=== PATIENT | female | born 1950 | race Caucasian/White ===

== ENCOUNTER 2019-02-06 06:08 | Inpatient (IN) | payer OTHER, BC ==
[2019-02-06] MEDS ORDERED: BUPIVACAINE LIPOSOME/PF (EXPAREL) 266 MG/20 ML VIAL ONE (07:26)
[2019-02-06] MEDS ORDERED: BUPIVACAINE HCL/PF 0.5% (5 MG/ML) 30 ML VIAL IJ ONE (07:26)
[2019-02-06] MEDS ORDERED: VANCOMYCIN 1,000 MG VIAL (RESTRICTED TO ID ONLY) IVPB ONE (08:30)
[2019-02-06] MEDS ORDERED: ceFAZolin SODIUM 1 GM VIAL IVPB ONE (08:30)
[2019-02-06] MEDS ORDERED: NALOXONE HCL 0.4 MG/ML VIAL IVPUSH PRN (09:34)
[2019-02-06] MEDS ORDERED: ONDANSETRON 4 MG/2 ML VIAL IVPUSH PRN ×3 (09:34→13:28)
[2019-02-06] MEDS ORDERED: LACTATED RINGERS SOLUTION 1,000 ML IV SCH ×2 (09:45→13:30)
[2019-02-06] MEDS ORDERED: ACETAMINOPHEN INJECTION 100 ML IVPB ONE ×2 (09:53→13:32)
[2019-02-06] MEDS ORDERED: GELATIN, ABSORBABLE 12-7MM EACH SPONGE TP ONE (10:05)
[2019-02-06] MEDS ORDERED: THROMBIN (BOVINE) 5,000 UNIT VIAL TP ONE (10:05)
--- NOTE | 2019-02-06 11:55 | PN ---
Progress Note (short form) - Note Progress Note: 68F s/p TIMUR L4-L5, L2-L5 laminectomies, L2-3 & L3-L4 PLIF, L2-L5 PISF POD #0: -Admit to ICU post-op. -Pain control: per anesthesia team ONLY (pre-op TLIP block & intra-thecal duromorph); NO NSAID's. -DVT PPx: -Mechanical only: CHRISTOPHER's, SCD's. -Chemical: None. -Incentive spirometry q15 min. -NPO until flatus. -Eduardo care; d/c when ambulating. -Post-op Ancef x 3 doses. -PT/OT/Rehab, OOB. -WBAT B/L LE. -No bending, lifting (>5 lbs), or twisting for 9-12 months. -Care per ICU & medical hospitalist team. -Discharge planning: [facility]; call for [facility]; . -Will follow. Frank Cabello MD (Orthopaedic Surgery).
--- NOTE | 2019-02-06 12:00 | OP ---
Operative Note - Note: Operative Date: 02/06/19 Pre-Operative Diagnosis: 1. Multi-level lumbar spinal instability. 2. Pseudarthrosis L4-L5. 3. Intervertebral disc disorders L2-L3, L3-L4 w/ associated spinal stenosis & neurogenic claudication. Severity of Illness: 4. Operation: 1. Removal of L4-L5 hardware. 2. Inspection of fusion mass. 3. L2- L5 laminectomies & facetectomies. 4. L2-L3, L3-L4 PLIF. 5. L2-L3, L3-L4 insertion biomechanical devices. 6. L2-L5 posterior instrumentation. 7. L2-L5 posterolateral arthrodesis. 8. Bone allograft. 9. Bone autograft. 10. Bone marrow aspiration & stem cell concentrate autograft. 11. Complex wound closure (20cm) Findings: -Pseudarthrosis L4-L5 -Spondylolysis L3 (bilateral) Implants: RTI Fortilink Tetrafuse Cages: L2-L3: [id number]. L3-L4: [id number]. Screws: See implant sheet Post-Operative Diagnosis: Same as Pre-op Surgeon: Frank Cabello Manual Control Auger Press Operator: Domingo Cabello Anesthesiologist/AUTOMATION SOFTWARE ENGINEER: Nelson Engel Anesthesia: General Specimens Removed: Hardware. L2-L3, L3-L4 disc Estimated Blood Loss (mls): 1,300 Drains & Tubes with Location: 1 x deep HemoVac drain Blood Volume Replaced (mls): 500 (Cell Saver) Fluid Volume Replaced (mls): 3,000 (Crystalloid) Operative Report Dictated: Yes
[2019-02-06] MEDS ORDERED: ACETAMINOPHEN 1000 MG/100 ML VIAL (NON FORMULARY) IVPB ONE ×2 (14:00→15:49)
--- NOTE | 2019-02-06 14:49 | OP ---
Date of Operation: 02/06/2019 Pre-Operative Diagnosis: 1. L2-L3, L3-L4, L4-L5 lumbar spondylotic radiculopathy. 2. L2-L5 spinal stenosis with neurogenic claudication. 3. Prior L4-L5 posterior decompression and instrumented lumbar fusion. 4. L4-L5 pseudarthrosis. 5. Bilateral L3 spondylolysis. 6. L3-L4 spondylolisthesis. 7. Adjacent level disease lumbar spine. 8. Chronic low back pain. 9. Segmental axial instability lumbar spine. Post-Operative Diagnosis: 1. L2-L3, L3-L4, L4-L5 lumbar spondylotic radiculopathy. 2. L2-L5 spinal stenosis with neurogenic claudication. 3. Prior L4-L5 posterior decompression and instrumented lumbar fusion. 4. L4-L5 pseudarthrosis. 5. Bilateral L3 spondylolysis. 6. L3-L4 spondylolisthesis. 7. Adjacent level disease lumbar spine. 8. Chronic low back pain. 9. Segmental axial instability lumbar spine. Procedure Performed: 1. Removal of prior L4-L5 instrumentation. (34239) 2. Inspection of fusion mass. (57284) 3. L2, L3, L4, L5 laminectomies and facetectomies. (52259-79, 08628-92 x 3) 4. L2-L3, L3-L4 posterolateral arthrodesis & posterior lumbar interbody fusion (PLIF). (57717, 10898) 5. L2-L3, L3-L4 insertion biomechanical device. (94230 x 2) 6. L2, L3, L4, L5 posterior instrumentation. (05022-24-97) 7. Morselized bone autograft. (25529) 8. Morselized bone allograft. (73817) 9. Bone marrow aspiration for bone grafting. (63808) 10. Complex wound closure, 4 layers, 30cm. (93034 x 4) Surgeon: Frank Cabello M.D. Transportation Design Engineer: Domingo Cabello M.D. Anesthesiologist: Nelson Engel M.D. Anesthesia: General, TLIP. Position: Prone. Incision: Midline. Specimens Removed: L4-L5 hardware, L2-L3 & L3-L4 discs. Implants: RTI Fortilink Tetrafuse Cages: L2-L3: [id number]. L3-L4: [id number]. Screws: See implant sheet. Crosslink: 40mm. Drains: None. Estimated Blood Loss: 1,300cc. Intravenous Fluid: 3,000cc crystalloid. Transfusions: 500cc Cell Saver. Complications: None. Bacteriology: None. Closure: No. 1 Vicryl, 2-0 Biosyn absorbable sutures. Indications: The patient was indicated for the above listed surgical procedure due to progressive neurological and functional decline that limits her mobility and furthermore her ability to independently attend to her activities of daily living. The patient was identified in the holding area by her armband. A long discussion was held with the patient regarding the risks, benefits, and alternatives of the above-listed procedure. The risks include, but are not limited to: Pain, bleeding, infection, damage to surrounding structures (including nerves, blood vessels, skin, ligaments, tendons, and bone), wound complications, failure of hardware/implants/reduction , need for further surgery, blood clots, myocardial infarction, cerebrovascular injury, pulmonary embolism, anesthesia complications, limp, numbness, paresthesias, loss of function, and . Benefits may include reduction of: back pain, radiculopathy, neurogenic claudication, and improved overall mobility and function. Alternatives include no surgery. All questions were answered. The patient understood and agreed to the procedure. Informed consent was obtained, witnessed, and verified. The patient's lumbar spine was marked. The patient was then assessed by the anesthesia team who proceeded to administer a bilateral imaging-guided TLIP blocks to facilitate post-operative pain management. The patient was then taken to the operating room after being seen by the anesthesia and nursing staff. Procedure: The patient was brought into the operating room, where anesthesia was then administered. This included 2g IV Ancef & 1g IV Vancomycin. A time-out was done led by , the attending surgeon. An indwelling Eduardo catheter was successfully inserted by the nursing team. The intra-operative neuromonitoring team provided prepositioning baseline motor and sensory readings. The patient was then safely placed in a prone position with all bony prominences well-padded on a [facility] spine table with strict attention paid to maintenance of sagittal vertical alignment. Retroversion of the pelvis was avoided by ensuring that the hips were extended. This also ensured appropriate lumbar lordosis. The arms were placed on well-padded arm boards and maintained with standard forward flexion, abduction, and external rotation of the shoulders , and flexion of the elbows. Special attention was given to the safe positioning of the cervical spine. The patients eyes, breasts, and belly were all free. The table was placed in 6 degrees of reverse Trendelenburg position to avoid ophthalmic vein congestion. Post-positional motor and sensory readings confirmed no change. A C-arm fluoroscopy unit was positioned perpendicularly to the table and maintained at the level of the upper thoracic spine, except when needed. The skin was prepped in standard, sterile fashion using betadine prep & scrub, wiped off with alcohol, and DuraPrep applied. Standard window draping was utilized, and this included draping of the C-arm. Appropriate pre-operative imaging, including lumbar spine x-rays and MRI, were available throughout the case for intraoperative evaluation. At this time, a review of the patients plain film lumbar spine x-rays led to the determination the previous surgery was performed at the L4-L5 levels. This was determined due to the presence of 4 lumbar vertebrae and sacralization of the 5th lumbar vertebra. A time-out was repeated, and the case began. The previous, curved midline skin incision was utilized and extended proximally from the tip of the spinous process of L1 to the tip of the spinous process of S1. Using electrocautery, the dissection was carried down through subcutaneous fat and then through the midline of the lumbodorsal fascia down to the tips of the spinous processes. A subperiosteal dissection was performed using a combination of unipolar electrocautery and Kang elevation. This was carried down the spinous process, over the laminae, across the facet joints, and out over the tips of the transverse processes from L2 to L5. In this dissection, the capsules of the L1-L2 joints were preserved bilaterally. The previously placed L4-L5 hardware was exposed bilaterally. The L2-L3, L3-L4, and L4-L5 joint capsules were pathologically hypertrophic. They were ablated using electrocautery and resected with rongeurs. The posterolateral dissection was performed with attention to hemostasis by utilizing both unipolar as well as bipolar electrocautery. Extensive scar tissue and fibrosis was encountered throughout the dissection, as evidence of previous lumbar spinal surgery. The posterolateral space was packed with Ray-Mariela sponges. A screw van cdl driver was fixed into screws at L4 and L5. Instability, and therefore pseudarthrosis, was demonstrated at L4-L5 and ankylosis of L5-S1 with no evidence of micromotion was seen at L5-S1. This confirmed that the location of the last mobile segment was L4-L5. This also completed the inspection of the L4-L5 fusion mass. The L4-L5 hardware was then removed. A rongeur was used to grasp the L3 spinous process and demonstrate a bilateral pars defect at that level. This identified the L3 sponylolysis and accounted for the L3-L4 spondylolisthesis. Bilateral laminectomies and partial medial facetectomies were performed at L2, L3, L4, and L5 utilizing Kerrison rongeur upcuts combined with Leksell rongeurs. All harvested bone was saved, freed of fibrous tissue, and morselized with a bone mill. At L2-L3, L3-L4, and L4-L5, tight recess stenosis was appreciated. The exiting L2, L3, L4, & L5 nerve roots were identified. Extensive epineural fibrosis diffusely from L2-L5. Stenosing, fibrotic scar tissue was meticulously dissected off the neural elements. Each foramen from L3-S1 was inspected utilizing an angled ball-tipped probe and proved to be generously capacious in accommodating the unobstructed exit of the nerve root at that level. The crowding of the convoluted ligamentum flavum and posterior facet joint capsules contributed to the recess stenosis. These structures were excised using Kerrison upcuts, thus fully completing the decompression. All retractors were relaxed and removed. A Jamshidi needle was delivered into the left posterior ileum through the same surgical incision. Via this, 60 mL of bone marrow was aspirated and spun down to isolate a mix of osteoprogenitor and hematopoietic cells. Retractors were inserted once again. The following was performed at L2-L3 and at L3-L4: The theca was gently mobilized from left to right using a nerve root retractor. In order to do this, we ensured that each nerve root was completely free in its neural foramen as previously described. With the intervertebral disc clearly visualized, large epidural veins were cauterized using bipolar electrocautery. The disc was approached from the right side and using a #11-blade, an elliptical annulotomy was performed. Kameron were passed into the disc at each level. The disc was morselized with rotation of the kameron, and then extricated with pituitary rongeurs and saved for lab evaluation. The end plates were freed of all soft tissues using a serrated curette. Milled bone autograft was packed into the interbody space, thus completing an anterior arthrodesis of the intervertebral space. An RTI Fortilink Tetrafuse spacer, that was packed with autograft bone, was inserted into the prepared intervertebral space. The cage was placed in a Press-Fit type manner where the kameron were one size under the actual size of the spacer placed as outlined above. An interference fit of the cage assured as we relied on ligamentotaxis for fixation. No dural problems were encountered. At this point, the neuromonitoring revealed no complications. Cage inserted at L2-L3: [id number]. Cage inserted at L3-L4: [id number]. Pedicle screws were then seated bilaterally at L2, L3, L4, & L5 utilizing standard anatomical guidelines: IE the intersection of the horizontal axis of the transverse process with the longitudinal axis of the inferior facet at each level. Utilizing lateral fluoroscopic x-ray, a 4.5mm pneumatic drill was passed via the pedicle at each level, into the corresponding vertebral body. Imaging allowed us to ensure that the drill screw was delivered along the undersurface of each endplate. This ensured fixation into the best quality bone. Each pedicle was palpated with a ball-tipped feeler. No breech of anterior, medial, lateral, caudal or cranial bone bed was noted. Precision Spine Reform screws were inserted bilaterally at L2, L3, L4, & L5. Each screw was reevaluated with lateral and anteroposterior fluoroscopy as well as intraoperative neuromonitoring. All intraoperative neuromonitoring readings were at or above the safe passage of 10 mA. The L2, L3, L4, and L5 pedicles were inspected and palpated using an angled ball -tipped probe. There was no evidence of screw breach involving any of the pedicles. Next, two rods were contoured, inserted and fixed into the screw heads with the appropriate screw caps. A torque-limiting device completed the fixation of each cap into each screw head. A single 40mm crosslink was utilized. Next, the muscle was gently retracted off the intertransverse plane. All packing sponges were removed. Milled autologous bone with allograft expansion was combined with the bone marrow aspirate concentrate and used for the posterolateral arthrodesis along the intertransverse plane from L2 to L5. Prior to this bone grafting, the recipient bone bed was denuded of all soft tissue. No burring was necessary due to healthy bleeding of each bony surface, including the posterior surface of the transverse processes and the lateral surface of the pars interarticularis at each level. Throughout the case, the wound was irrigated with normal saline solution to keep the exposed soft tissues hydrated. The retractors were released every 15 to 20 minutes to enable adequate blood flow to the paraspinal muscles. These muscles were gently massaged upon release of the retractors to further facilitate blood flow. At the end of the procedure, fragmented and compromised paraspinal muscle was superficially debrided. The anesthesiologist then performed a final Valsalva maneuver up to 40mmHg. There was no evidence of dural defect, cerebrospinal fluid leak, or uncontrollable bleeding. Closure: The lumbodorsal fascia overlying the paraspinal musculature was closed in the midline using #1 vicryl sutures in simple interrupted fashion. A 1/8 HemoVac drain was placed in the plane deep to the fascia, exiting adjacent to the proximal apex of the incision. The wound was repeatedly thoroughly irrigated with normal saline solution. The subcutaneous tissues were closed using #1 Vicryl sutures. The skin was closed using a running 2-0 Biosyn absorbable suture. This completed a complex, 4-layered wound closure of approximately 30cm. The skin was then painted with benzoin and Steri-Strips were applied perpendicular to the incision. A Primapore adhesive Telfa island dressing was applied over the Steri-Strips and a sterile, compressive dressing was applied using 4x4 gauze pads. The skin was painted with DuraPrep. The wound was then sealed with adhesive Ioban. Final AP & lateral fluoroscopic analysis revealed L2-L3 and L3-L4 PLIF cages and L2-L5 instrumentation that appeared intact & place. The L2-L3 and L3-L4 disc heights were reconstituted with visibly patent neuroforaminae. There was no fluoroscopic evidence of retained sponges or needles. The sponge and needle counts were correct at the end of the case and I, the attending surgeon, was present and scrubbed throughout the case. The patient was transferred to a hospital bed. All neural monitoring leads were removed. The patient was then transferred to the recovery room in stable condition, as per the anesthesia team, having tolerated the procedure well. Overall comment: Operation went extremely well with no concerning complications. All appropriate goals were achieved in the execution of this operative event. MD BRUNO Avila/[id number] MTDD
[2019-02-06] MEDS: PHENYLEPHRINE HCL 20,000 MCG in SODIUM CHLORIDE 248 ML IVPB SCH ×2 (15:05→20:00)
--- NOTE | 2019-02-06 15:06 | CONSULT ---
Consultation: REQUESTING PROVIDER: Dr. Leon CONSULT REQUEST: We have been asked to medically evaluate this patient s/p TIMUR L4-L5, L2-L5 laminectomies, L2-3 & L3-L4 PLIF, L2-L5 PISF Pre-op diagnosis: -Pseudarthrosis L4-L5 -Spondylolysis L3 (bilateral) Anesthetic: (pre-op TLIP block & intra-thecal duromorph) Implants: RTI Fortilink Tetrafuse Cages: L2-L3: [id number]. L3-L4: [id number]. POD #0 Specimens Removed: Hardware. L2-L3, L3-L4 disc Estimated Blood Loss (mls): 1,300 Drains & Tubes with Location: 1 x deep HemoVac drain Blood Volume Replaced (mls): 500 (Cell Saver) Fluid Volume Replaced (mls): 3,000 (Crystalloid) Eduardo- 300cc output Non-smoker HISTORY OF PRESENT ILLNESS: This is a 68 y/o F with a PMH of HLD, HTN, depression, who presents for TIMUR L4-L5, L2-L5 laminectomies, L2-3 & L3-L4 PLIF, L2-L5 PISF. The history was taken from pt's , pt is too lethargic s/p anesthesia. She has been experiencing sharp pain radiating down b/l LE's for over a year that acutely worsened over the past week. It is associated with cold temperatures and improved with warmer temperatures. It is not associated with any bowel or bladder incontinence. Allergies: Demerol (vomiting) Surgical Hx: 2 back procedures (unknown which type per family), hysterectomy, serous cystadenocarcinoma removal, rt elbow tendinitis repair Fam Hx- nothing T- never A- none D- none REVIEW OF SYSTEMS: negative except above. pt not awake enough PHYSICAL EXAMINATION Vital Signs - 24 hr 02/06/19 02/06/19 06:58 07:17 Temperature 98.0 F Pulse Rate 70 Respiratory 16 Rate Blood Pressure 141/68 O2 Sat by Pulse 99 Oximetry (%) GENERAL: lethargic, nonresponsive to noxious stimuli. EYES: Pupils equal, round and reactive to light LUNGS: Breath sounds equal, clear to auscultation bilaterally. No wheezes, and no crackles. No accessory muscle use. HEART: tachycardic and regular rhythm, normal S1 and S2 without murmur, rub or gallop. ABDOMEN: Soft, nontender, not distended, davol drain in place draining serosanguinous fluid from back. MUSCULOSKELETAL: Normal range of motion at all joints. No bony deformities or tenderness. No CVA tenderness. Neurologic: lethargic, pupils reactive to light, pt nonresponsive to commands or noxious stimuli. SKIN: Warm, dry, no rashes or lesions noted. Laboratory Results - last 24 hr 02/06/19 02/06/19 06:29 08:32 Blood Type O POSITIVE O POSITIVE Antibody Screen Negative Active Medications Generic Name Dose Route Start Last Admin Trade Name Freq PRN Reason Stop Dose Admin Acetaminophen 650 mg 02/06/19 20:00 Tylenol - PO Q6H MOISÉS Acetaminophen 1,000 mg 02/06/19 22:00 Ofirmev Injection - IVPB 02/07/19 14:01 Q8H MOISÉS Amlodipine Besylate 2.5 mg 02/07/19 10:00 Norvasc - PO DAILY [facility] Atorvastatin Calcium 20 mg 02/06/19 22:00 Lipitor - PO HS [facility] Diphenhydramine HCl 25 mg 02/06/19 09:34 Benadryl Injection - IVPUSH ONCE PRN FOR ITCHING Fentanyl 25 mcg 02/06/19 09:34 Sublimaze Injection - IVPUSH [id number] PRN PAIN-PACU ORDER X 4 DOSES ONLY Lactated Ringer's 1,000 mls @ 75 mls/hr 02/06/19 09:45 Lactated Ringers Solution IV ASDIR [facility] Lactated Ringer's 1,000 mls @ 125 mls/hr 02/06/19 13:30 Lactated Ringers Solution IV ASDIR [facility] Lamotrigine 25 mg 02/06/19 22:00 Lamictal - PO HS [facility] Naloxone HCl 0.4 mg 02/06/19 09:34 Narcan - IVPUSH ONCE PRN Sedation Ondansetron HCl 4 mg 02/06/19 09:34 Zofran Injection IVPUSH ONCE PRN NAUSEA Ondansetron HCl 4 mg 02/06/19 09:34 Zofran Injection IVPUSH Q6H PRN NAUSEA AND/OR VOMITING Ondansetron HCl 4 mg 02/06/19 13:28 Zofran Injection IVPUSH Q6H PRN NAUSEA AND/OR VOMITING Oxycodone HCl 5 mg 02/06/19 09:34 Roxicodone - PO Q3H PRN Mild Pain 1-3 Oxycodone HCl 10 mg 02/06/19 09:34 Roxicodone - PO Q3H PRN Moderate Pain 4-6 Oxycodone HCl 10 mg 02/07/19 09:35 Oxycontin - PO BID MOISÉS Paroxetine HCl 30 mg 02/07/19 10:00 Paxil - PO DAILY MOISÉS Trazodone HCl 150 mg 02/06/19 22:00 Desyrel - PO HS [facility] ASSESSMENT/PLAN: This is a 68 y/o s/p TIMUR L4-L5, L2-L5 laminectomies, L2-3 & L3-L4 PLIF, L2-L5 PISF Ortho -> Pain control: per anesthesia team ONLY (pre-op TLIP block & intra-thecal duromorph); NO NSAID's. - oxycodone prn - IV LR @125ccc/hr - phenylephrine titrated down to 50mcg for MAP support >65 -Incentive spirometry q15 min. - zofran prn for nausea -NPO until flatus. -Eduardo care; d/c when ambulating. - monitor Urine output -Post-op Ancef 1g x 3 doses. -PT/OT/Rehab, OOB. -weight bearing as tolerated B/L LE's. Neuro-> depression/lethargy - pt found to be lethargic on exam s/p sedation - had anesthesia reevaluate the patient and were not concerned most likely 2/2 anesthesia - continue lamictal, trazodone, paroxetine Cardiovascular-> HTN/HLD - c/w amlodipine - c/w atorvastatin -DVT PPx:Mechanical only: CHRISTOPHER's, SCD's. Chemical: None. GI PPX: not necessary s/p extubation Dispo: We will continue to follow the patient. Thank you for this consultative opportunity.
[2019-02-06] MEDS ORDERED: NALOXONE HCL 0.4 MG/ML VIAL ONE (15:14)
[2019-02-06] MEDS ORDERED: EPHEDRINE SULFATE/0.9% NACL/PF 50 MG/10 ML SYRINGE NR ONE (15:14)
[2019-02-06] MEDS ORDERED: SODIUM CHLORIDE 0.9% P/F 10 ML VIAL IJ ONE (15:14)
[2019-02-06 15:32] LABS: BASO % 0.3 % (0-2.0); EOS % 0.5 % (0-4.5); HEMATOCRIT 28.8 % (32.4-45.2); HEMOGLOBIN 9.5 GM/dL (10.7-15.3); LYMPH % 14.1 % (8-40); MCH 28.3 pg (25.7-33.7); MEAN CELL VOLUME 85.9 fl (80-96); MONO % 4.8 % (3.8-10.2); NEUT % 80.3 % (42.8-82.8); PLATELET COUNT 192 K/MM3 (134-434); RBC 3.35 M/mm3 (3.60-5.2); RDW 13.8 % (11.6-15.6); WHITE BLOOD COUNT 10.9 K/mm3 (4.0-10.0)
[2019-02-06 15:59] LABS: ALBUMIN 2.1 g/dl (3.4-5.0); BILIRUBIN,TOTAL 0.4 mg/dL (0.2-1); CALCIUM 7.4 mg/dL (8.5-10.1); CREATININE 0.9 mg/dL (0.55-1.3); MAGNESIUM 1.6 mg/dL (1.8-2.4); PHOSPHOROUS 4.7 mg/dL (2.5-4.9); POTASSIUM 4.1 mmol/L (3.5-5.1); TOT PROT 3.5 g/dl (6.4-8.2)
[2019-02-06] MEDS ORDERED: PHENYLEPHRINE HCL 10 MG/1 ML SINGLE DOSE VIAL ONE ×3 (16:13→20:39)
[2019-02-06] MEDS ORDERED: MAGNESIUM SULF 50% (8.12 MEQ/2 ML-1 GM VIAL) IVPB ONE (16:22)
[2019-02-06] MEDS ORDERED: ACETAMINOPHEN 325 MG TABLET (FP) PO SCH (20:00)
[2019-02-06] MEDS: LACTATED RINGERS SOLUTION 1,000 ML IV SCH (20:04)
[2019-02-06] MEDS: lamoTRIgine 25 MG TABLET PO SCH (21:25)
[2019-02-06] MEDS: traZODone HCL 50 MG TABLET (FP) PO SCH (21:25)
[2019-02-06] MEDS: ACETAMINOPHEN 1000 MG/100 ML VIAL (NON FORMULARY) IVPB SCH (21:27)
[2019-02-06 21:59] LABS: ARTERIAL BLD GAS O2 SATURATION 98.7 % (95-98)
[2019-02-06] MEDS ORDERED: ATORVASTATIN CA 20 MG TABLET (FP) PO SCH (22:00)
[2019-02-06 22:06] LABS: ARTERIAL BLOOD GAS PO2 223 mmHg (80-100)
[2019-02-06 22:07] LABS: ALLENS TEST NEGATIVE
[2019-02-06 22:12] LABS: ARTERIAL BLOOD GAS PCO2 > 100 mmHg (35-45); ARTERIAL BLOOD GAS pH 7.03 (7.35-7.45)
[2019-02-06] MEDS ORDERED: RAPID SEQUENCE INTUBATION KIT NR ONE (22:26)
[2019-02-06] MEDS ORDERED: PROPOFOL 200 MG/20 ML VIAL IVPUSH ONE (22:53)
[2019-02-06] MEDS ORDERED: SUCCINYLCHOLINE CHLORIDE 200 MG/10 ML VIAL IVPUSH ONE (22:53)
--- NOTE | 2019-02-06 23:05 | PROC ---
Intubation - Intubation Reason for Intubation: Respiratory Insufficiency, Airway Protection Time of Intubation: 22:30 Intubation Method: orotracheal Blade used: Mac (3) Tube Size (cm): 7.5 Tube position @ lip (cm): 22 Tube position confirmed by: Direct visualization, CO2 detector, Chest x-ray, Breath sounds Breath Sounds after Intubation: equal Post Intubation Xray: Yes (pending) Remarks: Anesthesiology Intubation Called re. pt. with worsening hypercarbia and lethargic state with little to no response to sternal rub or other painful stimuli. She also remains on vasopressor support and is receiving blood transfusion post-op spine surgery. Pt. positioned in bed, Propofol 100mg followed by Succinylcholine 100mg IV push by RN. BMV assumed by resident and myself with ease. Grade 2 laryngoscopic view , ETT passed with ease, cuff inflated. Bilateral breath sounds confirmed and color change with carboximeter. VSS. BP 119/72, HR 66, SpO2 100%
[2019-02-06] MEDS ORDERED: DEXMEDETOMIDINE HCL 200 MCG in SODIUM CHLORIDE 48 ML IVPB SCH (23:45)
[2019-02-07 00:35] LABS: ARTERIAL BLD GAS O2 SATURATION 95.5 % (95-98); ARTERIAL BLOOD GAS BASE EXCESS -8.3 meq/l (-2-2); ARTERIAL BLOOD GAS PCO2 62.3 mmHg (35-45); ARTERIAL BLOOD GAS PO2 88.8 mmHg (80-100)
[2019-02-07 01:26] LABS: ALLENS TEST POSITIVE
[2019-02-07 01:29] LABS: ARTERIAL BLOOD GAS pH 7.15 (7.35-7.45)
[2019-02-07] MEDS: PROPOFOL 1,000,000 MCG/100 ML VIAL IVPB SCH (04:00)
[2019-02-07 04:57] LABS: ARTERIAL BLD GAS O2 SATURATION 99.4 % (95-98); ARTERIAL BLOOD GAS BASE EXCESS -0.6 meq/l (-2-2); ARTERIAL BLOOD GAS PCO2 31.7 mmHg (35-45); ARTERIAL BLOOD GAS PO2 147 mmHg (80-100); ARTERIAL BLOOD GAS pH 7.46 (7.35-7.45)
[2019-02-07 05:06] LABS: ALLENS TEST POSITIVE
[2019-02-07] MEDS: ACETAMINOPHEN 1000 MG/100 ML VIAL (NON FORMULARY) IVPB SCH ×2 (06:22→15:05)
[2019-02-07 07:24] LABS: HEMATOCRIT 28.3 % (32.4-45.2); HEMOGLOBIN 9.7 GM/dL (10.7-15.3); MCHC 34.3 g/dl (32.0-36.0); MEAN CELL VOLUME 84.5 fl (80-96); MEAN PLT VOLUME 8.3 fl (7.5-11.1); PLATELET COUNT 134 K/MM3 (134-434); RBC 3.35 M/mm3 (3.60-5.2); RDW 13.3 % (11.6-15.6); WHITE BLOOD COUNT 9.7 K/mm3 (4.0-10.0)
[2019-02-07 07:46] LABS: ALBUMIN 2.3 g/dl (3.4-5.0); BILIRUBIN,TOTAL 1.2 mg/dL (0.2-1); BLOOD UREA NITROGEN 9.5 mg/dL (7-18); CALCIUM 7.7 mg/dL (8.5-10.1); CREATININE 0.8 mg/dL (0.55-1.3); MAGNESIUM 1.9 mg/dL (1.8-2.4); PHOSPHOROUS 2.4 mg/dL (2.5-4.9); POTASSIUM 4.2 mmol/L (3.5-5.1)
--- NOTE | 2019-02-07 08:22 | HP ---
CHIEF COMPLAINT: neurosurg surgery PCP: HISTORY OF PRESENT ILLNESS: Patient is a 68 y/o female with a history of HLD, HTN, and depression who presents for neurosurgery with Dr. Cabello. Patient underwent TIMUR L4-L5, L2-L5 laminectomies, L2-3 & L3-L4 PLIF, L2-L5 PISF. Patient was extubated in the PACU and brought to the ICU. Patient began to have trouble breathing and with acidotic ABG she was reintubated. Patients tube was 2 cm to low, the tube was pulled back a bit. Patient currently intubated and sedated. ER course was notable for: (1) (2) (3) Recent Travel: PAST MEDICAL HISTORY: HLD, HTN, and depression PAST SURGICAL HISTORY: past lumbar surgery Social History: Smoking: unable to obtain Alcohol: unable to obtain Drugs: unable to obtain Allergies meperidine [From Demerol] Allergy (Verified 02/03/19 12:38) "vomitting,hives" HOME MEDICATIONS: Home Medications Medication Instructions Recorded Amlodipine Besylate 2.5 mg PO DAILY 02/03/19 Atorvastatin Ca [Lipitor] 20 mg PO HS 02/03/19 Lamotrigine 25 mg PO HS 02/03/19 Paroxetine HCl [Paxil] 30 mg PO DAILY 02/03/19 Trazodone HCl 150 mg PO HS 02/03/19 REVIEW OF SYSTEMS unable to review PHYSICAL EXAMINATION Vital Signs Temperature 100.6 F H 02/07/19 06:00 Pulse Rate 73 02/07/19 06:30 Respiratory Rate 18 02/07/19 06:30 Blood Pressure 120/60 02/07/19 06:30 O2 Sat by Pulse Oximetry (%) 100 02/07/19 07:00 GENERAL: sedated, intubated HEAD: atraumatic LUNGS: Breath sounds equal, clear to auscultation bilaterally. No wheezes, and no crackles. No accessory muscle use. HEART: Regular rate and rhythm, normal S1 and S2 without murmur, rub or gallop. ABDOMEN: Soft, nontender, not distended, normoactive bowel sounds, no guarding, no rebound, no masses. MUSCULOSKELETAL: drain coming from back, did not turn patient post op LOWER EXTREMITIES: 2+ pulses, warm, well-perfused. No calf tenderness. No peripheral edema. SKIN: Warm, dry, normal turgor, no rashes or lesions noted, normal capillary refill. CBC, BMP 02/07/19 06:28 02/07/19 06:00 ASSESSMENT/PLAN: Patient is a 68 y/o female with a history of HLD, HTN, and depression who presents for neurosurgery. #Lumbar surgery - TIMUR L4-L5, L2-L5 laminectomies, L2-3 & L3-L4 PLIF, L2-L5 PISF - SCD's for prophylaxis - pain management as per Anesthesia - incentive spirometry q15 min - NPO until flatus - received post op Ancef - f/u PT - continue to monitor hgb> stable 9.7 post op #hypercapnic respiratory failure - likely 2/2 to anesthesia with soft tissue relaxation - patient still intubated, wean as per ICU - ABG's showed improvement - endotracheal tube placement improved with new CXR #hyperlipidemia - hold lipitor in setting of elevated liver tranaminases #elevated transaminase - AST, ALT trending down post op - continue to monitor #depression - continue lamictal - continue paxil #HTN -hold medications while patient sedated and normotensive #DVT ppx - only mechanical as per surgeon, SCD's FEN - NPO while intubated Dispo: management while in the ICU, patient to f/u with Manohar on discharge Visit type - Emergency Visit Emergency Visit: No - New Patient This patient is new to me today: Yes Date on this admission: 02/10/19 - Critical Care Critical Care patient: No ATTENDING PHYSICIAN STATEMENT I saw and evaluated the patient. I reviewed the resident's note and discussed the case with the resident. I agree with the resident's findings and plan as documented. SUBJECTIVE: OBJECTIVE: ASSESSMENT AND PLAN:
[2019-02-07] MEDS ORDERED: amLODIPine BESYLATE 2.5 MG TABLET (FP) PO SCH (10:00)
--- NOTE | 2019-02-07 10:26 | PN ---
Physical Exam: SUBJECTIVE: Patient seen and examined this morning and was intubated and sedated. pt sedation was weaned off later in am, pt responds to commands and was later extubated. pt is saturating well on venti mask and is neurologically intact. OBJECTIVE: Vital Signs Period Temp Pulse Resp BP Sys/Husain Pulse Ox Last 24 Hr 97.3 F-100.6 F 65-131 8-24 70-153/30-116 97-100 GENERAL: The patient is awake, alert, in no acute distress. EYES: PERRL, extraocular movements intact ENT: oropharynx clear without exudates, moist mucous membranes. LUNGS: Breath sounds equal, clear to auscultation bilaterally, no wheezes, no crackles, no accessory muscle use. HEART: Regular rate and rhythm, S1, S2 without murmur, rub or gallop. ABDOMEN: Soft, nontender, nondistended, normoactive bowel sounds, no guarding EXTREMITIES: 2+ pulses, warm, well-perfused, no edema. NEUROLOGICAL: Cranial nerves II through XII grossly intact. Normal speech, gait not observed. SKIN: Warm, dry, normal turgor, no rashes or lesions noted Laboratory Last Values WBC 9.7 K/mm3 (4.0-10.0) 02/07/19 06:28 RBC 3.35 M/mm3 (3.60-5.2) L 02/07/19 06:28 Hgb 9.7 GM/dL (10.7-15.3) L 02/07/19 06:28 Hct 28.3 % (32.4-45.2) L 02/07/19 06:28 MCV 84.5 fl (80-96) 02/07/19 06:28 MCH 29.0 pg (25.7-33.7) 02/07/19 06:28 MCHC 34.3 g/dl (32.0-36.0) 02/07/19 06:28 RDW 13.3 % (11.6-15.6) 02/07/19 06:28 Plt Count 134 K/MM3 (134-434) D 02/07/19 06:28 MPV 8.3 fl (7.5-11.1) 02/07/19 06:28 Absolute Neuts (auto) 8.7 K/mm3 (1.5-8.0) H 02/06/19 15:08 Neutrophils % 80.3 % (42.8-82.8) 02/06/19 15:08 Lymphocytes % 14.1 % (8-40) 02/06/19 15:08 Monocytes % 4.8 % (3.8-10.2) 02/06/19 15:08 Eosinophils % 0.5 % (0-4.5) 02/06/19 15:08 Basophils % 0.3 % (0-2.0) 02/06/19 15:08 Nucleated RBC % 0 % (0-0) 02/06/19 15:08 Puncture Site Right radial 02/07/19 04:50 ABG pH 7.46 (7.35-7.45) H 02/07/19 04:50 ABG pCO2 at Pt Temp 31.7 mmHg (35-45) L 02/07/19 04:50 ABG pO2 at Pt Temp 147 mmHg (80-100) H 02/07/19 04:50 ABG HCO3 22.3 mmol/L (22-27) 02/07/19 04:50 ABG O2 Sat (Measured) 99.4 % (95-98) H 02/07/19 04:50 ABG O2 Content 13.8 % vol 02/07/19 04:50 ABG Base Excess -0.6 meq/l (-2-2) 02/07/19 04:50 Garth Test Positive 02/07/19 04:50 O2 Delivery Device Vent 02/07/19 04:50 Oxygen Flow Rate 50 02/07/19 04:50 Vent Mode A/c 02/07/19 04:50 Vent Rate 18 02/07/19 04:50 Mechanical Rate Mech vent 02/07/19 04:50 Pressure Support Vent 500 02/07/19 04:50 Sodium 138 mmol/L (136-145) 02/07/19 06:00 Potassium 4.2 mmol/L (3.5-5.1) 02/07/19 06:00 Chloride 108 mmol/L (98-107) H 02/07/19 06:00 Carbon Dioxide 24 mmol/L (21-32) 02/07/19 06:00 Anion Gap 7 MMOL/L (8-16) L 02/07/19 06:00 BUN 9.5 mg/dL (7-18) 02/07/19 06:00 Creatinine 0.8 mg/dL (0.55-1.3) 02/07/19 06:00 Est GFR (CKD-EPI)AfAm 87.80 02/07/19 06:00 Est GFR (CKD-EPI)NonAf 75.75 02/07/19 06:00 Random Glucose 116 mg/dL (74-106) H 02/07/19 06:00 Calcium 7.7 mg/dL (8.5-10.1) L 02/07/19 06:00 Phosphorus 2.4 mg/dL (2.5-4.9) L 02/07/19 06:00 Magnesium 1.9 mg/dL (1.8-2.4) 02/07/19 06:00 Total Bilirubin 1.2 mg/dL (0.2-1) H 02/07/19 06:00 AST 159 U/L (15-37) H 02/07/19 06:00 ALT 164 U/L (13-61) H 02/07/19 06:00 Alkaline Phosphatase 95 U/L (45-117) 02/07/19 06:00 Total Protein 4.0 g/dl (6.4-8.2) L 02/07/19 06:00 Albumin 2.3 g/dl (3.4-5.0) L 02/07/19 06:00 Blood Type O POSITIVE 02/06/19 08:32 Antibody Screen Negative 02/06/19 06:29 Crossmatch See Detail 02/06/19 06:29 Current Medications Acetaminophen (Ofirmev Injection -) 1,000 mg IVPB Q8H [facility] Stop: 02/07/19 14:01 Last Admin: 02/07/19 06:22 Dose: 1,000 mg Diphenhydramine HCl (Benadryl Injection -) 25 mg IVPUSH ONCE PRN PRN Reason: FOR ITCHING Phenylephrine HCl 20,000 mcg/ (Sodium Chloride) 250 mls @ 30 mls/hr IVPB [facility]; Protocol Last Titration: 02/07/19 02:30 Dose: 0 mcg/min, 0 mls/hr Lactated Ringer's (Lactated Ringers Solution) 1,000 mls @ 150 mls/hr IV [facility] Last Admin: 02/06/19 20:04 Dose: 150 mls/hr Propofol (Diprivan -) 1,000,000 mcg in 100 mls @ 1.633 mls/hr IVPB TITR [facility]; Protocol Last Titration: 02/07/19 06:02 Dose: 30 mcg/kg/min, 9.798 mls/hr Lamotrigine (Lamictal -) 25 mg PO HS [facility] Last Admin: 02/06/19 21:25 Dose: Not Given Naloxone HCl (Narcan -) 0.4 mg IVPUSH ONCE PRN PRN Reason: Sedation Ondansetron HCl (Zofran Injection) 4 mg IVPUSH ONCE PRN PRN Reason: NAUSEA Ondansetron HCl (Zofran Injection) 4 mg IVPUSH Q6H PRN PRN Reason: NAUSEA AND/OR VOMITING Ondansetron HCl (Zofran Injection) 4 mg IVPUSH Q6H PRN PRN Reason: NAUSEA AND/OR VOMITING Oxycodone HCl (Roxicodone -) 5 mg PO Q3H PRN PRN Reason: Mild Pain 1-3 Oxycodone HCl (Roxicodone -) 10 mg PO Q3H PRN PRN Reason: Moderate Pain 4-6 Oxycodone HCl (Oxycontin -) 10 mg PO BID [facility] Paroxetine HCl (Paxil -) 30 mg PO DAILY [facility] Trazodone HCl (Desyrel -) 150 mg PO [facility] Last Admin: 02/06/19 21:25 Dose: Not Given ASSESSMENT/PLAN: This is a 68 y/o PMH HLD, HTN, and depression s/p TIMUR L4-L5, L2-L5 laminectomies, L2-3 & L3-L4 PLIF, L2-L5 PISF Neuro: -AAOx3 -neuro intact, CN 2-12 intact Pulm: Acute hypercapneic resp failure s/p re-intubation & extubation -pt required reintubation on 02/06 following initial extubation. -initial ABG prior to re-intubation: pH 7.03, pCO2 >100, pO2 223. -ABG following re-intubation: pH 7.46, pCO2 31.7, pO2 147 -extubated this am, saturating well on NC -c/w Incentive spirometry Cardio: -required phenylepherine overnight for MAP support -currently vitals are stable Ortho : TIMUR L4-L5, L2-L5 laminectomies, L2-3 & L3-L4 PLIF, L2-L5 PISF Pain control: per anesthesia team ONLY (pre-op TLIP block & intra-thecal duromorph); NO NSAID's. - oxycodone prn - IV LR @125ccc/hr - zofran prn for nausea -Eduardo care; d/c when ambulating. monitor Urine output -Post-op Ancef 1g x 3 doses. -PT/OT/Rehab, OOB. -weight bearing as tolerated B/L LE's. Neuro: depression/lethargy - pt found to be lethargic on exam s/p sedation - continue lamictal, trazodone, paroxetine Cardiovascular: HTN/HLD - c/w amlodipine - c/w atorvastatin -DVT PPx:Mechanical only: CHRISTOPHER's, SCD's. Dispo: continue ICU monitoring Visit type - Emergency Visit Emergency Visit: No - New Patient This patient is new to me today: Yes - Critical Care Critical Care patient: Yes Total Critical Care Time (in minutes): 36 Critical Care Statement: The care of this patient involved high complexity decision making to prevent further life threatening deterioration of the patient 's condition and/or to evaluate & treat vital organ system(s) failure or risk of failure. ATTENDING PHYSICIAN STATEMENT I saw and evaluated the patient. I reviewed the resident's note and discussed the case with the resident. I agree with the resident's findings and plan as documented. SUBJECTIVE: OBJECTIVE: ASSESSMENT AND PLAN:
[2019-02-07] MEDS: oxyCODONE HCL 5 MG TABLET PO PRN ×2 (10:45→19:55)
--- NOTE | 2019-02-07 10:53 | PN ---
Teaching Attending Note Name of Resident: Moni Bustamante ATTENDING PHYSICIAN STATEMENT I saw and evaluated the patient. I reviewed the resident's note and discussed the case with the resident. I agree with the resident's findings and plan as documented. SUBJECTIVE: Patient seen and examined in the ICU. Intubated and sedated on propofol. AC Mode of vent, 40% FiO2. Transiently on Phenylephrine overnight. Intake & Output 02/04/19 02/05/19 02/06/19 02/07/19 23:59 23:59 23:59 23:59 Intake Total 7175 1800 Output Total 2600 400 Balance 4575 1400 Weight 139 lb 8.842 oz Last Vital Signs Temp Pulse Resp BP Pulse Ox 100.6 F H 125 H 24 H 153/116 H 97 02/07/19 06:00 02/07/19 09:45 02/07/19 09:30 02/07/19 09:30 02/07/19 09:45 Active Medications Acetaminophen (Ofirmev Injection -) 1,000 mg IVPB Q8H [facility] Stop: 02/07/19 14:01 Last Admin: 02/07/19 06:22 Dose: 1,000 mg Diphenhydramine HCl (Benadryl Injection -) 25 mg IVPUSH ONCE PRN PRN Reason: FOR ITCHING Phenylephrine HCl 20,000 mcg/ (Sodium Chloride) 250 mls @ 30 mls/hr IVPB [facility]; Protocol Last Titration: 02/07/19 02:30 Dose: 0 mcg/min, 0 mls/hr Lactated Ringer's (Lactated Ringers Solution) 1,000 mls @ 150 mls/hr IV [facility] Last Admin: 02/06/19 20:04 Dose: 150 mls/hr Propofol (Diprivan -) 1,000,000 mcg in 100 mls @ 1.633 mls/hr IVPB TITR [facility]; Protocol Last Titration: 02/07/19 06:02 Dose: 30 mcg/kg/min, 9.798 mls/hr Lamotrigine (Lamictal -) 25 mg PO HS [facility] Last Admin: 02/06/19 21:25 Dose: Not Given Naloxone HCl (Narcan -) 0.4 mg IVPUSH ONCE PRN PRN Reason: Sedation Ondansetron HCl (Zofran Injection) 4 mg IVPUSH ONCE PRN PRN Reason: NAUSEA Ondansetron HCl (Zofran Injection) 4 mg IVPUSH Q6H PRN PRN Reason: NAUSEA AND/OR VOMITING Ondansetron HCl (Zofran Injection) 4 mg IVPUSH Q6H PRN PRN Reason: NAUSEA AND/OR VOMITING Oxycodone HCl (Roxicodone -) 5 mg PO Q3H PRN PRN Reason: Mild Pain 1-3 Oxycodone HCl (Roxicodone -) 10 mg PO Q3H PRN PRN Reason: Moderate Pain 4-6 Last Admin: 02/07/19 10:45 Dose: 10 mg Oxycodone HCl (Oxycontin -) 10 mg PO BID [facility] Paroxetine HCl (Paxil -) 30 mg PO DAILY [facility] Trazodone HCl (Desyrel -) 150 mg PO HS [facility] Last Admin: 02/06/19 21:25 Dose: Not Given GENERAL: Vented, sedated EYES: Pupils equal, round and reactive to light LUNGS: Breath sounds equal, clear to auscultation bilaterally. No wheezes, and no crackles. No accessory muscle use. HEART: S1S2, no murmur, rub or gallop. ABDOMEN: Soft, nontender, not distended, davol drain in place draining serosanguinous fluid from back. MUSCULOSKELETAL: Normal range of motion at all joints. No bony deformities or tenderness. No CVA tenderness. Neurologic: lethargic, pupils reactive to light, sedated SKIN: Warm, dry, no rashes or lesions noted. Laboratory Results - last 24 hr 02/06/19 02/06/19 02/06/19 06:29 15:08 15:08 WBC 10.9 H RBC 3.35 L Hgb 9.5 L Hct 28.8 L MCV 85.9 MCH 28.3 MCHC 33.0 RDW 13.8 Plt Count 192 MPV 8.0 Absolute Neuts (auto) 8.7 H Neutrophils % 80.3 Lymphocytes % 14.1 Monocytes % 4.8 Eosinophils % 0.5 Basophils % 0.3 Nucleated RBC % 0 Puncture Site ABG pH ABG pCO2 at Pt Temp ABG pO2 at Pt Temp ABG HCO3 ABG O2 Sat (Measured) ABG O2 Content ABG Base Excess Garth Test O2 Delivery Device Oxygen Flow Rate Vent Mode Vent Rate Mechanical Rate Pressure Support Vent Sodium 142 Potassium 4.1 Chloride 112 H Carbon Dioxide 24 Anion Gap 6 L BUN 11.0 Creatinine 0.9 Est GFR (CKD-EPI)AfAm 76.14 Est GFR (CKD-EPI)NonAf 65.70 Random Glucose 86 Calcium 7.4 L Phosphorus 4.7 Magnesium 1.6 L Total Bilirubin 0.4 AST 382 H ALT 178 H Alkaline Phosphatase 70 Total Protein 3.5 L Albumin 2.1 L Blood Type O POSITIVE Antibody Screen Negative Crossmatch See Detail 02/06/19 02/07/19 02/07/19 21:50 00:25 04:50 WBC RBC Hgb Hct MCV MCH MCHC RDW Plt Count MPV Absolute Neuts (auto) Neutrophils % Lymphocytes % Monocytes % Eosinophils % Basophils % Nucleated RBC % Puncture Site Right brachial Right radial Right radial ABG pH 7.03 L* 7.15 L* 7.46 H ABG pCO2 at Pt Temp > 100 H* 62.3 H 31.7 L ABG pO2 at Pt Temp 223 H 88.8 147 H ABG HCO3 No Result Required. 20.7 L 22.3 ABG O2 Sat (Measured) 98.7 H 95.5 99.4 H ABG O2 Content 13.3 14.8 13.8 ABG Base Excess No Result Required. -8.3 L -0.6 Garth Test Negative Positive Positive O2 Delivery Device Mech vent Vent Oxygen Flow Rate Yes 50 50 Vent Mode A/c A/c Vent Rate 14 18 Mechanical Rate Mech vent Pressure Support Vent 500 500 Sodium Potassium Chloride Carbon Dioxide Anion Gap BUN Creatinine Est GFR (CKD-EPI)AfAm Est GFR (CKD-EPI)NonAf Random Glucose Calcium Phosphorus Magnesium Total Bilirubin AST ALT Alkaline Phosphatase Total Protein Albumin Blood Type Antibody Screen Crossmatch 02/07/19 02/07/19 06:00 06:28 WBC 9.7 RBC 3.35 L Hgb 9.7 L Hct 28.3 L MCV 84.5 MCH 29.0 MCHC 34.3 RDW 13.3 Plt Count 134 D MPV 8.3 Absolute Neuts (auto) Neutrophils % Lymphocytes % Monocytes % Eosinophils % Basophils % Nucleated RBC % Puncture Site ABG pH ABG pCO2 at Pt Temp ABG pO2 at Pt Temp ABG HCO3 ABG O2 Sat (Measured) ABG O2 Content ABG Base Excess Garth Test O2 Delivery Device Oxygen Flow Rate Vent Mode Vent Rate Mechanical Rate Pressure Support Vent Sodium 138 Potassium 4.2 Chloride 108 H Carbon Dioxide 24 Anion Gap 7 L BUN 9.5 Creatinine 0.8 Est GFR (CKD-EPI)AfAm 87.80 Est GFR (CKD-EPI)NonAf 75.75 Random Glucose 116 H Calcium 7.7 L Phosphorus 2.4 L Magnesium 1.9 Total Bilirubin 1.2 H AST 159 H ALT 164 H Alkaline Phosphatase 95 Total Protein 4.0 L Albumin 2.3 L Blood Type Antibody Screen Crossmatch ASSESSMENT/PLAN: POD #1: 1. Removal of L4-L5 hardware. 2. Inspection of fusion mass. 3. L2- L5 laminectomies & facetectomies. 4. L2-L3, L3-L4 PLIF. 5. L2-L3, L3-L4 insertion biomechanical devices. 6. L2-L5 posterior instrumentation. 7. L2-L5 posterolateral arthrodesis. 8. Bone allograft. 9. Bone autograft. 10. Bone marrow aspiration & stem cell concentrate autograft. 11. Complex wound closure (20cm) Post-operative Respiratory Failure Depression HTN HPL DC sedation Wean to pressors Strict I & O VTE prophylaxis Normal transfusion thresholds Post op Ancef Requires ICU monitoring Dr Fuentes Critical care time spent in reviewing chart, evaluating patient and formulating plan - 36 minutes.
[2019-02-07] MEDS ORDERED: PARoxetine HCL 10 MG TABLET ONE (11:06)
[2019-02-07] MEDS: oxyCODONE HCL 10 MG SUSTAINED ACTING TABLET PO SCH ×3 (11:22→21:06)
[2019-02-07] MEDS: PARoxetine HCL 30 MG TABLET PO SCH (11:24)
[2019-02-07] MEDS ORDERED: SODIUM CHLORIDE 500 ML IV STA (14:17)
--- NOTE | 2019-02-07 16:02 | PN ---
Teaching Attending Note Name of Resident: Kemi Gutiérrez ATTENDING PHYSICIAN STATEMENT I saw and evaluated the patient. I reviewed the resident's note and discussed the case with the resident. I agree with the resident's findings and plan as documented. SUBJECTIVE: This is a 68 year old woman with a history of HTN, hyperlipidemia, depression who presented to the hospital for lumbar surgery. She underwent TIMUR L4-L5, L2-L5 laminectomies, L2-3 & L3-L4 PLIF, L2-L5 PISF by Dr. Cabello. While in PACU, she became dyspneic and acidotic and she was reintubated. OBJECTIVE: Vital Signs Period Temp Pulse Resp BP Sys/Husain Pulse Ox Last 24 Hr 97.4 F-100.6 F 65-131 8-26 76-153/40-116 95-100 GENERAL: Sedated on vent HEART: S1S2, RRR LUNGS: Clear ABDOMEN: Soft, non-distended, normal BS EXTREMITIES: No edema Laboratory Results - last 24 hr 02/06/19 02/06/19 02/07/19 06:29 21:50 00:25 WBC RBC Hgb Hct MCV MCH MCHC RDW Plt Count MPV Puncture Site Right brachial Right radial ABG pH 7.03 L* 7.15 L* ABG pCO2 at Pt Temp > 100 H* 62.3 H ABG pO2 at Pt Temp 223 H 88.8 ABG HCO3 No Result Required. 20.7 L ABG O2 Sat (Measured) 98.7 H 95.5 ABG O2 Content 13.3 14.8 ABG Base Excess No Result Required. -8.3 L Garth Test Negative Positive O2 Delivery Device Mech vent Oxygen Flow Rate Yes 50 Vent Mode A/c Vent Rate 14 Mechanical Rate Pressure Support Vent 500 Sodium Potassium Chloride Carbon Dioxide Anion Gap BUN Creatinine Est GFR (CKD-EPI)AfAm Est GFR (CKD-EPI)NonAf Random Glucose Calcium Phosphorus Magnesium Total Bilirubin AST ALT Alkaline Phosphatase Total Protein Albumin Blood Type O POSITIVE Antibody Screen Negative Crossmatch See Detail 02/07/19 02/07/19 02/07/19 04:50 06:00 06:28 WBC 9.7 RBC 3.35 L Hgb 9.7 L Hct 28.3 L MCV 84.5 MCH 29.0 MCHC 34.3 RDW 13.3 Plt Count 134 D MPV 8.3 Puncture Site Right radial ABG pH 7.46 H ABG pCO2 at Pt Temp 31.7 L ABG pO2 at Pt Temp 147 H ABG HCO3 22.3 ABG O2 Sat (Measured) 99.4 H ABG O2 Content 13.8 ABG Base Excess -0.6 Garth Test Positive O2 Delivery Device Vent Oxygen Flow Rate 50 Vent Mode A/c Vent Rate 18 Mechanical Rate Mech vent Pressure Support Vent 500 Sodium 138 Potassium 4.2 Chloride 108 H Carbon Dioxide 24 Anion Gap 7 L BUN 9.5 Creatinine 0.8 Est GFR (CKD-EPI)AfAm 87.80 Est GFR (CKD-EPI)NonAf 75.75 Random Glucose 116 H Calcium 7.7 L Phosphorus 2.4 L Magnesium 1.9 Total Bilirubin 1.2 H AST 159 H ALT 164 H Alkaline Phosphatase 95 Total Protein 4.0 L Albumin 2.3 L Blood Type Antibody Screen Crossmatch Home Medications Medication Instructions Recorded Amlodipine Besylate 2.5 mg PO DAILY 02/03/19 Atorvastatin Ca [Lipitor] 20 mg PO HS 02/03/19 Lamotrigine 25 mg PO HS 02/03/19 Paroxetine HCl [Paxil] 30 mg PO DAILY 02/03/19 Trazodone HCl 150 mg PO HS 02/03/19 ASSESSMENT AND PLAN: This is a 68 year old woman with a history of HTN, hyperlipidemia, depression, lumbar spinal stenosis who is admitted after undergoing lumbar spine surgery. 1. Lumbar spinal stenosis with neurogenic claudication - s/p removal of L4-L5 hardware; inspection of fusion mass; L2-L5 laminectomies & facetectomies; L2-L3, L3-L4 PLIF; L2-L3, L3-L4 insertion biomechanical devices; L2-L5 posterior instrumentation; L2-L5 posterolateral arthrodesis; bone allograft; bone autograft; bone marrow aspiration & stem cell concentrate autograft; complex wound closure (20cm) 2. Acute hypercapneic respiratory failure - Patient admitted to ICU - Vent management as per critical care team 3. Hepatic transaminitis - Hold Lipitor - Improving - Consider RUQ US if no further improvement - Continue to monitor LFTs 4. Hypomagnesemia - Improved 5. Anemia - Normocytic - Baseline hemoglobin not known - Hemoglobin is stable from yesterday - Continue to monitor hemoglobin 6. Hyperlipidemia - Hold Lipitor secondary to transaminitis 7. HTN - On Norvasc at home 8. Depression - Continue Paxil, Lamictal 9. DVT prophylaxis - SCDs - No Lovenox/heparin secondary to spine surgery
[2019-02-07] MEDS ORDERED: SODIUM CHLORIDE 0.9% 500 ML INFUS.BAG IV ONE (17:02)
[2019-02-07] MEDS: PHENYLEPHRINE HCL 20,000 MCG in SODIUM CHLORIDE 248 ML IVPB SCH (17:13)
--- NOTE | 2019-02-07 18:00 | PATH ---
Surgical Pathology Report Patient Name: VELMA GAVIN [facility]. Rec. #: [id number] /Age/Gender: 1950 (Age: 68) / F Account: [id number] Location: ICU PAINT TESTER Taken: 02/06/2019 Received: 02/06/2019 Reported: 02/07/2019 Physicians: Frank Cabello M.D. Specimen(s) Received A: REMOVED HARDWARE B: DISC Clinical History Spinal stenosis Final Diagnosis A. HARDWARE, REMOVAL: SURGICAL HARDWARE. MACROSCOPIC DIAGNOSIS. B. DISC, L2-L5, LAMINECTOMY AND FUSION: BENIGN INTERVERTEBRAL DISC TISSUE AND BONE. Electronically Signed Kemi Rowan M.D. Gross Description A. Received fresh labeled "removed hardware" are multiple (10) metal hardware comprised of rods and pedicle screws ranging in size from 1.5-5 cm in length. No soft tissue identified, for gross examination only. B. Received in formalin labeled "disc L2-L5" are multiple fragments of pink-nicole fibrocartilaginous tissue measuring 5 x 4 x 1 cm in aggregate. Chief Lock Tender Operator sections are submitted in one cassette. MLSZ/02/06/2019 sanml/02/06/2019
[2019-02-07] MEDS: LACTATED RINGERS SOLUTION 1,000 ML IV SCH (20:28)
[2019-02-07] MEDS ORDERED: KETOROLAC TROMETHAMINE 30 MG/1 ML VIAL IVPUSH ONE (20:58)
[2019-02-07] MEDS ORDERED: KETOROLAC TROMETHAMINE 30 MG/1 ML VIAL ONE (21:02)
[2019-02-07] MEDS: lamoTRIgine 25 MG TABLET PO SCH (21:06)
[2019-02-07] MEDS: traZODone HCL 50 MG TABLET (FP) PO SCH (21:06)
[2019-02-08] MEDS ORDERED: SODIUM CHLORIDE 0.9% 500 ML INFUS.BAG IV ONE (00:14)
[2019-02-08] MEDS ORDERED: KETOROLAC TROMETHAMINE 30 MG/1 ML VIAL ONE (03:00)
[2019-02-08] MEDS: oxyCODONE HCL 5 MG TABLET PO PRN ×4 (03:02→21:26)
[2019-02-08] MEDS ORDERED: ACETAMINOPHEN 1000 MG/100 ML VIAL (NON FORMULARY) IVPB ONE (04:12)
[2019-02-08] MEDS: PROPOFOL 1,000,000 MCG/100 ML VIAL IVPB SCH (05:38)
[2019-02-08 06:50] LABS: BASO % 0.1 % (0-2.0); EOS % 1.2 % (0-4.5); HEMATOCRIT 25.1 % (32.4-45.2); HEMOGLOBIN 8.6 GM/dL (10.7-15.3); LYMPH % 7.8 % (8-40); MCH 29.2 pg (25.7-33.7); MCHC 34.3 g/dl (32.0-36.0); MEAN CELL VOLUME 85.1 fl (80-96); MEAN PLT VOLUME 8.4 fl (7.5-11.1); MONO % 6.6 % (3.8-10.2); NEUT % 84.3 % (42.8-82.8); PLATELET COUNT 106 K/MM3 (134-434); RBC 2.95 M/mm3 (3.60-5.2); RDW 13.7 % (11.6-15.6); WHITE BLOOD COUNT 7.8 K/mm3 (4.0-10.0)
[2019-02-08] MEDS ORDERED: KETOROLAC TROMETHAMINE 30 MG/1 ML VIAL IVPUSH PRN (07:00)
[2019-02-08 07:19] LABS: BILIRUBIN,TOTAL 0.6 mg/dL (0.2-1); BLOOD UREA NITROGEN 10.3 mg/dL (7-18); CREATININE 0.7 mg/dL (0.55-1.3); MAGNESIUM 2.1 mg/dL (1.8-2.4); TOT PROT 3.7 g/dl (6.4-8.2)
[2019-02-08] MEDS ORDERED: NAPH,MB-DB/K PH,MBDB POWDER PACKET PO ONE (08:00)
[2019-02-08] MEDS ORDERED: PARoxetine HCL 10 MG TABLET ONE (08:18)
[2019-02-08] MEDS: oxyCODONE HCL 10 MG SUSTAINED ACTING TABLET PO SCH ×2 (09:09→21:27)
[2019-02-08] MEDS: LACTATED RINGERS SOLUTION 1,000 ML IV SCH (09:10)
[2019-02-08] MEDS: PARoxetine HCL 30 MG TABLET PO SCH (09:10)
[2019-02-08] MEDS: traMADol HCL 50 MG TABLET PO PRN ×2 (09:52→23:03)
--- NOTE | 2019-02-08 12:02 | PN ---
Teaching Attending Note Name of Resident: Moni Bustamante ATTENDING PHYSICIAN STATEMENT I saw and evaluated the patient. I reviewed the resident's note and discussed the case with the resident. I agree with the resident's findings and plan as documented. SUBJECTIVE: Pt seen and examined in the ICU. Pain controlled. No flatus yet. No fevers or chills. Denies shortness of breath or chest pain. OBJECTIVE: Vital Signs Period Temp Pulse Resp BP Sys/Husain Pulse Ox Last 24 Hr 98.4 F-99.7 F 73-118 15-26 80-154/40-69 95-99 Intake & Output 02/05/19 02/06/19 02/07/19 02/08/19 23:59 23:59 23:59 23:59 Intake Total 7175 1800 2350 Output Total 2600 2200 910 Balance 4575 -400 1440 Weight 63.3 kg 63.503 kg Gen: NAD at rest Heart: RRR Lung: decreased breath sounds at the bases Abd: soft, nontender Ext: no edema CBC, BMP 02/08/19 05:55 02/08/19 05:55 Active Medications Diphenhydramine HCl (Benadryl Injection -) 25 mg IVPUSH ONCE PRN PRN Reason: FOR ITCHING Lactated Ringer's (Lactated Ringers Solution) 1,000 mls @ 150 mls/hr IV [facility] Last Admin: 02/08/19 09:10 Dose: 150 mls/hr Lamotrigine (Lamictal -) 25 mg PO HS [facility] Last Admin: 02/07/19 21:06 Dose: 25 mg Ondansetron HCl (Zofran Injection) 4 mg IVPUSH ONCE PRN PRN Reason: NAUSEA Ondansetron HCl (Zofran Injection) 4 mg IVPUSH Q6H PRN PRN Reason: NAUSEA AND/OR VOMITING Ondansetron HCl (Zofran Injection) 4 mg IVPUSH Q6H PRN PRN Reason: NAUSEA AND/OR VOMITING Oxycodone HCl (Roxicodone -) 5 mg PO Q3H PRN PRN Reason: Mild Pain 1-3 Last Admin: 02/08/19 03:02 Dose: 5 mg Oxycodone HCl (Roxicodone -) 10 mg PO Q3H PRN PRN Reason: Moderate Pain 4-6 Last Admin: 02/08/19 06:28 Dose: 10 mg Oxycodone HCl (Oxycontin -) 10 mg PO BID [facility] Last Admin: 02/08/19 09:09 Dose: 10 mg Paroxetine HCl (Paxil -) 30 mg PO DAILY [facility] Last Admin: 02/08/19 09:10 Dose: 30 mg Tramadol HCl (Ultram -) 50 mg PO Q4H PRN PRN Reason: PAIN LEVEL 1-5 Last Admin: 02/08/19 09:52 Dose: 50 mg Trazodone HCl (Desyrel -) 150 mg PO [facility] Last Admin: 02/07/19 21:06 Dose: 150 mg ASSESSMENT AND PLAN: Lumbar Spinal Stenosis s/p L2-L5/Laminectomies/Facetectomies/Biomechanical Device Insertion/PLIF Acute Hypercapneic Respiratory Failure improved HTN Hyperlipidemia Depression Anemia Thrombocytopenia - pain control - incentive spirometry - monitor CBC - PO when flatus - d/c [place] when OOB - rehab/PT - DVT prophylaxis - disposition per surgery
[2019-02-08 13:59] VITALS: BMI 25.6
[2019-02-08] MEDS ORDERED: PT OWN MED DRAWER 7, Y5N ONE (14:51)
--- NOTE | 2019-02-08 15:32 | PN ---
Physical Exam: SUBJECTIVE: Patient seen and examined at bedside and is complaining of back pain. pt denies SOB, cp, palpitations. OBJECTIVE: Vital Signs Period Temp Pulse Resp BP Sys/Husain Pulse Ox Last 24 Hr 98.6 F-99.7 F 73-118 15-26 80-154/40-69 97-99 GENERAL: The patient is awake, alert, and fully oriented, in no acute distress. LUNGS: Breath sounds equal, clear to auscultation bilaterally, no accessory muscle use. HEART: Regular rate and rhythm, S1, S2 without murmur, rub or gallop. ABDOMEN: Soft, nontender, nondistended, normoactive bowel sounds, no guarding EXTREMITIES: 2+ pulses, warm, well-perfused, no edema. SKIN: Warm, dry, normal turgor, no rashes or lesions noted Laboratory Results - last 24 hr 02/08/19 02/08/19 05:55 05:55 WBC 7.8 RBC 2.95 L Hgb 8.6 L Hct 25.1 L MCV 85.1 MCH 29.2 MCHC 34.3 RDW 13.7 Plt Count 106 L D MPV 8.4 Absolute Neuts (auto) 6.6 Neutrophils % 84.3 H Lymphocytes % 7.8 L D Monocytes % 6.6 Eosinophils % 1.2 D Basophils % 0.1 Nucleated RBC % 0 Sodium 145 Potassium 5.0 Chloride 113 H Carbon Dioxide 29 Anion Gap 3 L BUN 10.3 Creatinine 0.7 Est GFR (CKD-EPI)AfAm 103.18 Est GFR (CKD-EPI)NonAf 89.03 Random Glucose 85 Calcium 8.0 L Phosphorus 2.0 L Magnesium 2.1 Total Bilirubin 0.6 AST 86 H ALT 109 H Alkaline Phosphatase 121 H Total Protein 3.7 L Albumin 2.0 L Current Medications Diphenhydramine HCl (Benadryl Injection -) 25 mg IVPUSH ONCE PRN PRN Reason: FOR ITCHING Lactated Ringer's (Lactated Ringers Solution) 1,000 mls @ 150 mls/hr IV ASDIR [facility] Last Admin: 02/08/19 09:10 Dose: 150 mls/hr Lamotrigine (Lamictal -) 25 mg PO HS [facility] Last Admin: 02/07/19 21:06 Dose: 25 mg Ondansetron HCl (Zofran Injection) 4 mg IVPUSH ONCE PRN PRN Reason: NAUSEA Ondansetron HCl (Zofran Injection) 4 mg IVPUSH Q6H PRN PRN Reason: NAUSEA AND/OR VOMITING Ondansetron HCl (Zofran Injection) 4 mg IVPUSH Q6H PRN PRN Reason: NAUSEA AND/OR VOMITING Oxycodone HCl (Roxicodone -) 5 mg PO Q3H PRN PRN Reason: Mild Pain 1-3 Last Admin: 02/08/19 03:02 Dose: 5 mg Oxycodone HCl (Roxicodone -) 10 mg PO Q3H PRN PRN Reason: Moderate Pain 4-6 Last Admin: 02/08/19 06:28 Dose: 10 mg Oxycodone HCl (Oxycontin -) 10 mg PO BID [facility] Last Admin: 02/08/19 09:09 Dose: 10 mg Paroxetine HCl (Paxil -) 30 mg PO DAILY [facility] Last Admin: 02/08/19 09:10 Dose: 30 mg Tramadol HCl (Ultram -) 50 mg PO Q4H PRN PRN Reason: PAIN LEVEL 1-5 Last Admin: 02/08/19 09:52 Dose: 50 mg Trazodone HCl (Desyrel -) 150 mg PO HS [facility] Last Admin: 02/07/19 21:06 Dose: 150 mg ASSESSMENT/PLAN: This is a 68 y/o PMH HLD, HTN, and depression s/p TIMUR L4-L5, L2-L5 laminectomies, L2-3 & L3-L4 PLIF, L2-L5 PISF Neuro: -AAOx3 -neuro intact, CN 2-12 intact Pulm: Acute hypercapneic resp failure s/p re-intubation & extubation -pt required reintubation on 02/06 following initial extubation. -initial ABG prior to re-intubation: pH 7.03, pCO2 >100, pO2 223. -ABG following re-intubation: pH 7.46, pCO2 31.7, pO2 147 -extubated 02/07, saturating well on NC -c/w Incentive spirometry Cardio: -been off pressors x 2 d, currently vitals are stable Ortho : TIMUR L4-L5, L2-L5 laminectomies, L2-3 & L3-L4 PLIF, L2-L5 PISF -pain control with oxycodone prn, tramadol for pain per ortho - zofran prn for nausea -Eduardo care; d/c when ambulating. monitor Urine output -Post-op Ancef 1g x 3 doses. -PT/OT/Rehab, OOB. -weight bearing as tolerated B/L LE's. Neuro: depression/lethargy - improved, pt is awake alert and oriented - continue lamictal, trazodone, paroxetine Cardiovascular: HTN/HLD - c/w atorvastatin -DVT PPx:Mechanical only: CHRISTOPHER's, SCD's. Dispo: continue ICU monitoring Visit type - Emergency Visit Emergency Visit: No - New Patient This patient is new to me today: No - Critical Care Critical Care patient: Yes Total Critical Care Time (in minutes): 36 Critical Care Statement: The care of this patient involved high complexity decision making to prevent further life threatening deterioration of the patient 's condition and/or to evaluate & treat vital organ system(s) failure or risk of failure. ATTENDING PHYSICIAN STATEMENT I saw and evaluated the patient. I reviewed the resident's note and discussed the case with the resident. I agree with the resident's findings and plan as documented. SUBJECTIVE: OBJECTIVE: ASSESSMENT AND PLAN:
--- NOTE | 2019-02-08 17:17 | PN ---
Teaching Attending Note Name of Resident: Leslie Tena ATTENDING PHYSICIAN STATEMENT I saw and evaluated the patient. I reviewed the resident's note and discussed the case with the resident. I agree with the resident's findings and plan as documented. SUBJECTIVE: Seen and examined at bedside, feeling lethargic, pain is well controlled. OBJECTIVE: Vital Signs Period Temp Pulse Resp BP Sys/Uhsain Pulse Ox Last 24 Hr 98.6 F-99.8 F 73-118 15-26 80-154/41-83 99-99 PHYSICAL EXAM: General: AND CVS: s1s2, rrr Lungs: CTA b/l, unlabored Abdomen: soft, nt/nd, nabs Ext: no cce Current Medications Generic Name Dose Route Start Last Admin Trade Name Freq PRN Reason Stop Dose Admin Diphenhydramine HCl 25 mg 02/06/19 09:34 Benadryl Injection - IVPUSH ONCE PRN FOR ITCHING Lactated Ringer's 1,000 ml in 1,000 mls @ 125 mls/hr 02/08/19 17:00 Lactated Ringers Solution IV ASDIR [facility] Lamotrigine 25 mg 02/06/19 22:00 02/07/19 21:06 Lamictal - PO 25 mg HS [facility] Administration Ondansetron HCl 4 mg 02/06/19 13:28 Zofran Injection IVPUSH Q6H PRN NAUSEA AND/OR VOMITING Oxycodone HCl 5 mg 02/06/19 09:34 02/08/19 03:02 Roxicodone - PO 5 mg Q3H PRN Administration Mild Pain 1-3 Oxycodone HCl 10 mg 02/06/19 09:34 02/08/19 15:31 Roxicodone - PO 10 mg Q3H PRN Administration Moderate Pain 4-6 Oxycodone HCl 10 mg 02/07/19 09:35 02/08/19 09:09 Oxycontin - PO 10 mg BID [facility] Administration Paroxetine HCl 30 mg 02/07/19 10:00 02/08/19 09:10 Paxil - PO 30 mg DAILY [facility] Administration Tramadol HCl 50 mg 02/08/19 08:29 02/08/19 09:52 Ultram - PO 50 mg Q4H PRN Administration PAIN LEVEL 1-5 Trazodone HCl 150 mg 02/06/19 22:00 02/07/19 21:06 Desyrel - PO 150 mg HS [facility] Administration Laboratory Results - last 24 hr 02/08/19 02/08/19 05:55 05:55 WBC 7.8 RBC 2.95 L Hgb 8.6 L Hct 25.1 L MCV 85.1 MCH 29.2 MCHC 34.3 RDW 13.7 Plt Count 106 L D MPV 8.4 Absolute Neuts (auto) 6.6 Neutrophils % 84.3 H Lymphocytes % 7.8 L D Monocytes % 6.6 Eosinophils % 1.2 D Basophils % 0.1 Nucleated RBC % 0 Sodium 145 Potassium 5.0 Chloride 113 H Carbon Dioxide 29 Anion Gap 3 L BUN 10.3 Creatinine 0.7 Est GFR (CKD-EPI)AfAm 103.18 Est GFR (CKD-EPI)NonAf 89.03 Random Glucose 85 Calcium 8.0 L Phosphorus 2.0 L Magnesium 2.1 Total Bilirubin 0.6 AST 86 H ALT 109 H Alkaline Phosphatase 121 H Total Protein 3.7 L Albumin 2.0 L ASSESSMENT: Lumbar spinal stenosis with neurogenic claudication Acute hypercapneic respiratory failure Transaminitis Normocytic Anemia and TCP HTN HLD Depression PLAN: -s/p removal of L4-L5 hardware; inspection of fusion mass; L2-L5 laminectomies & facetectomies; L2-L3, L3-L4 PLIF; L2-L3, L3-L4 insertion biomechanical devices ; L2-L5 posterior instrumentation; L2-L5 posterolateral arthrodesis; bone allograft; bone autograft; bone marrow aspiration & stem cell concentrate autograft; complex wound closure (20cm) -pain control -monitor h/h and platelets -BP controlled -mood stable, c/w paxil and lamictal -lfts trending down, restart lipitor upon DC -incentive spirometry -advance diet per surgery recs -PT/OT
[2019-02-08] MEDS: LACTATED RINGERS SOLUTION 1,000 ML/1,000 ML INFUS.BAG IV SCH (18:26)
--- NOTE | 2019-02-08 18:34 | PN ---
Physical Exam: SUBJECTIVE: Patient seen and examined OBJECTIVE: Vital Signs Period Temp Pulse Resp BP Sys/Husain Pulse Ox Last 24 Hr 98.6 F-99.8 F 73-118 15-26 80-154/44-83 99-99 GENERAL: The patient is awake, alert, and fully oriented, in no acute distress. HEAD: Normal with no signs of trauma. EYES: PERRL, extraocular movements intact, sclera anicteric, conjunctiva clear. No ptosis. ENT: Ears normal, nares patent, oropharynx clear without exudates, moist mucous membranes. NECK: Trachea midline, full range of motion, supple. LUNGS: Breath sounds equal, clear to auscultation bilaterally, no wheezes, no crackles, no accessory muscle use. HEART: Regular rate and rhythm, S1, S2 without murmur, rub or gallop. ABDOMEN: Soft, nontender, nondistended, normoactive bowel sounds, no guarding, no rebound, no hepatosplenomegaly, no masses. EXTREMITIES: 2+ pulses, warm, well-perfused, no edema. NEUROLOGICAL: Cranial nerves II through XII grossly intact. Normal speech, gait not observed. PSYCH: Normal mood, normal affect. SKIN: Warm, dry, normal turgor, no rashes or lesions noted Laboratory Results - last 24 hr 02/08/19 02/08/19 05:55 05:55 WBC 7.8 RBC 2.95 L Hgb 8.6 L Hct 25.1 L MCV 85.1 MCH 29.2 MCHC 34.3 RDW 13.7 Plt Count 106 L D MPV 8.4 Absolute Neuts (auto) 6.6 Neutrophils % 84.3 H Lymphocytes % 7.8 L D Monocytes % 6.6 Eosinophils % 1.2 D Basophils % 0.1 Nucleated RBC % 0 Sodium 145 Potassium 5.0 Chloride 113 H Carbon Dioxide 29 Anion Gap 3 L BUN 10.3 Creatinine 0.7 Est GFR (CKD-EPI)AfAm 103.18 Est GFR (CKD-EPI)NonAf 89.03 Random Glucose 85 Calcium 8.0 L Phosphorus 2.0 L Magnesium 2.1 Total Bilirubin 0.6 AST 86 H ALT 109 H Alkaline Phosphatase 121 H Total Protein 3.7 L Albumin 2.0 L Active Medications Generic Name Dose Route Start Last Admin Trade Name Freq PRN Reason Stop Dose Admin Diphenhydramine HCl 25 mg 02/06/19 09:34 Benadryl Injection - IVPUSH ONCE PRN FOR ITCHING Lactated Ringer's 1,000 ml in 1,000 mls @ 125 mls/hr 02/08/19 17:00 02/08/19 18:26 Lactated Ringers Solution IV 125 mls/hr ASDIR [facility] Administration Lamotrigine 25 mg 02/06/19 22:00 02/07/19 21:06 Lamictal - PO 25 mg HS [facility] Administration Ondansetron HCl 4 mg 02/06/19 13:28 Zofran Injection IVPUSH Q6H PRN NAUSEA AND/OR VOMITING Oxycodone HCl 5 mg 02/06/19 09:34 02/08/19 03:02 Roxicodone - PO 5 mg Q3H PRN Administration Mild Pain 1-3 Oxycodone HCl 10 mg 02/06/19 09:34 02/08/19 15:31 Roxicodone - PO 10 mg Q3H PRN Administration Moderate Pain 4-6 Oxycodone HCl 10 mg 02/07/19 09:35 02/08/19 09:09 Oxycontin - PO 10 mg BID [facility] Administration Paroxetine HCl 30 mg 02/07/19 10:00 02/08/19 09:10 Paxil - PO 30 mg DAILY [facility] Administration Tramadol HCl 50 mg 02/08/19 08:29 02/08/19 09:52 Ultram - PO 50 mg Q4H PRN Administration PAIN LEVEL 1-5 Trazodone HCl 150 mg 02/06/19 22:00 02/07/19 21:06 Desyrel - PO 150 mg HS [facility] Administration ASSESSMENT/PLAN: ATTENDING PHYSICIAN STATEMENT I saw and evaluated the patient. I reviewed the resident's note and discussed the case with the resident. I agree with the resident's findings and plan as documented. SUBJECTIVE: OBJECTIVE: ASSESSMENT AND PLAN:
[2019-02-08] MEDS: lamoTRIgine 25 MG TABLET PO SCH (21:25)
[2019-02-08] MEDS: traZODone HCL 50 MG TABLET (FP) PO SCH (21:25)
[2019-02-09] MEDS: traMADol HCL 50 MG TABLET PO PRN ×2 (02:21→06:10)
[2019-02-09 06:38] LABS: HEMATOCRIT 27.1 % (32.4-45.2); HEMOGLOBIN 9.2 GM/dL (10.7-15.3); MCH 29.1 pg (25.7-33.7); MEAN CELL VOLUME 85.4 fl (80-96); MEAN PLT VOLUME 8.5 fl (7.5-11.1); PLATELET COUNT 149 K/MM3 (134-434); RBC 3.18 M/mm3 (3.60-5.2); RDW 14.2 % (11.6-15.6); WHITE BLOOD COUNT 8.9 K/mm3 (4.0-10.0)
[2019-02-09 06:54] LABS: BLOOD UREA NITROGEN 10.8 mg/dL (7-18); CREATININE 0.6 mg/dL (0.55-1.3); MAGNESIUM 1.8 mg/dL (1.8-2.4); POTASSIUM 3.9 mmol/L (3.5-5.1)
[2019-02-09] MEDS ORDERED: NAPH,MB-DB/K PH,MBDB POWDER PACKET PO ONE (07:33)
--- NOTE | 2019-02-09 08:31 | PN ---
Physical Exam: SUBJECTIVE: Patient seen and examined at bedside in the ICU. Reports that her back pain has improved and pain is controlled. Has not passed gas or bowel movement yet. OBJECTIVE: Vital Signs Period Temp Pulse Resp BP Sys/Husain Pulse Ox Last 24 Hr 98.6 F-99.8 F 87-118 14-26 108-168/52-83 92-99 GENERAL: The patient is awake, alert, and fully oriented, in no acute distress. HEAD: Normal with no signs of trauma. EYES: PERRL, extraocular movements intact, sclera anicteric, conjunctiva clear. No ptosis. ENT: Ears normal, nares patent, oropharynx clear without exudates, moist mucous membranes. NECK: Trachea midline, full range of motion, supple. LUNGS: Breath sounds equal, clear to auscultation bilaterally, no wheezes, no crackles, no accessory muscle use. HEART: Regular rate and rhythm, S1, S2 without murmur, rub or gallop. ABDOMEN: Soft, nontender, nondistended, no guarding, no rebound, no hepatosplenomegaly, no masses. EXTREMITIES: 2+ pulses, warm, well-perfused, no edema. NEUROLOGICAL: Cranial nerves II through XII grossly intact. Normal speech, gait not observed. SKIN: Warm, dry, normal turgor, no rashes or lesions noted Laboratory Results - last 24 hr 02/09/19 02/09/19 05:30 05:30 WBC 8.9 RBC 3.18 L Hgb 9.2 L Hct 27.1 L MCV 85.4 MCH 29.1 MCHC 34.0 RDW 14.2 Plt Count 149 D MPV 8.5 Sodium 141 Potassium 3.9 Chloride 109 H Carbon Dioxide 24 Anion Gap 8 BUN 10.8 Creatinine 0.6 Est GFR (CKD-EPI)AfAm 108.55 Est GFR (CKD-EPI)NonAf 93.66 Random Glucose 64 L Calcium 8.0 L Phosphorus 2.0 L Magnesium 1.8 Active Medications Generic Name Dose Route Start Last Admin Trade Name Freq PRN Reason Stop Dose Admin Diphenhydramine HCl 25 mg 02/06/19 09:34 Benadryl Injection - IVPUSH ONCE PRN FOR ITCHING Lactated Ringer's 1,000 ml in 1,000 mls @ 125 mls/hr 02/08/19 17:00 02/08/19 18:26 Lactated Ringers Solution IV 125 mls/hr ASDIR [facility] Administration Lamotrigine 25 mg 02/06/19 22:00 02/08/19 21:25 Lamictal - PO 25 mg HS [facility] Administration Ondansetron HCl 4 mg 02/06/19 13:28 Zofran Injection IVPUSH Q6H PRN NAUSEA AND/OR VOMITING Oxycodone HCl 5 mg 02/06/19 09:34 02/08/19 03:02 Roxicodone - PO 5 mg Q3H PRN Administration Mild Pain 1-3 Oxycodone HCl 10 mg 02/06/19 09:34 02/08/19 15:31 Roxicodone - PO 10 mg Q3H PRN Administration Moderate Pain 4-6 Oxycodone HCl 10 mg 02/07/19 09:35 02/08/19 21:27 Oxycontin - PO 10 mg BID [facility] Administration Paroxetine HCl 30 mg 02/07/19 10:00 02/08/19 09:10 Paxil - PO 30 mg DAILY [facility] Administration Tramadol HCl 50 mg 02/08/19 08:29 02/09/19 06:10 Ultram - PO 50 mg Q4H PRN Administration PAIN LEVEL 1-5 Trazodone HCl 150 mg 02/06/19 22:00 02/08/19 21:25 Desyrel - PO 150 mg HS [facility] Administration ASSESSMENT/PLAN: This is a 68 y/o PMH HLD, HTN, and depression s/p TIMUR L4-L5, L2-L5 laminectomies, L2-3 & L3-L4 PLIF, L2-L5 PISF Neuro: -AAOx3 -neuro intact, CN 2-12 intact Pulm: Acute hypercapneic resp failure s/p re-intubation & extubation -pt required reintubation on 02/06 following initial extubation. -initial ABG prior to re-intubation: pH 7.03, pCO2 >100, pO2 223. -ABG following re-intubation: pH 7.46, pCO2 31.7, pO2 147 -extubated 02/07, saturating well on NC -c/w Incentive spirometry Cardio: -been off pressors x 2 d, currently vitals are stable Ortho : TIMUR L4-L5, L2-L5 laminectomies, L2-3 & L3-L4 PLIF, L2-L5 PISF -pain control with oxycodone prn, tramadol for pain per ortho - zofran prn for nausea -Eduardo care; d/c when ambulating and OOB. monitor Urine output -Post-op Ancef 1g x 3 doses. -PT/OT/Rehab, OOB. -weight bearing as tolerated B/L LE's. GI -start miralax 15 -NPO until passing gas or bowel movements Neuro: depression/lethargy - improved, pt is awake alert and oriented - continue lamictal, trazodone, paroxetine Cardiovascular: HTN/HLD - c/w atorvastatin DVT PPx: Mechanical only: CHRISTOPHER's, SCD's. Dispo: transfer to floor Visit type - Emergency Visit Emergency Visit: No - New Patient This patient is new to me today: No - Critical Care Critical Care patient: Yes Total Critical Care Time (in minutes): 35 Critical Care Statement: The care of this patient involved high complexity decision making to prevent further life threatening deterioration of the patient 's condition and/or to evaluate & treat vital organ system(s) failure or risk of failure. ATTENDING PHYSICIAN STATEMENT I saw and evaluated the patient. I reviewed the resident's note and discussed the case with the resident. I agree with the resident's findings and plan as documented. SUBJECTIVE: OBJECTIVE: ASSESSMENT AND PLAN:
[2019-02-09] MEDS ORDERED: PARoxetine HCL 10 MG TABLET ONE (09:27)
[2019-02-09] MEDS: oxyCODONE HCL 10 MG SUSTAINED ACTING TABLET PO SCH ×2 (09:30→21:47)
[2019-02-09] MEDS: PARoxetine HCL 30 MG TABLET PO SCH (09:36)
[2019-02-09] MEDS: LACTATED RINGERS SOLUTION 1,000 ML/1,000 ML INFUS.BAG IV SCH (09:40)
[2019-02-09] MEDS: POLYETHYLENE GLYCOL 3350 119 GM BTL PO SCH (11:11)
--- NOTE | 2019-02-09 12:00 | PN ---
Teaching Attending Note Name of Resident: Nelson Duran ATTENDING PHYSICIAN STATEMENT I saw and evaluated the patient. I reviewed the resident's note and discussed the case with the resident. I agree with the resident's findings and plan as documented. SUBJECTIVE: Patient seen and examined in the ICU. Pain seems better controlled. No CP or SOB. Afebrile. Intake & Output 02/06/19 02/07/19 02/08/19 02/09/19 23:59 23:59 23:59 23:59 Intake Total 7175 1800 4850 Output Total 2600 2200 1295 Balance 4575 -400 3555 Weight 139 lb 8.842 oz 140 lb 139 lb 9 oz Last Vital Signs Temp Pulse Resp BP Pulse Ox 98.8 F 114 H 24 H 162/78 98 02/09/19 02:00 02/09/19 08:00 02/09/19 08:00 02/09/19 08:00 02/09/19 05:00 Active Medications Diphenhydramine HCl (Benadryl Injection -) 25 mg IVPUSH ONCE PRN PRN Reason: FOR ITCHING Lactated Ringer's (Lactated Ringers Solution) 1,000 ml in 1,000 mls @ 125 mls/ hr IV ASDIR [facility] Last Admin: 02/09/19 09:40 Dose: 125 mls/hr Lamotrigine (Lamictal -) 25 mg PO HS [facility] Last Admin: 02/08/19 21:25 Dose: 25 mg Ondansetron HCl (Zofran Injection) 4 mg IVPUSH Q6H PRN PRN Reason: NAUSEA AND/OR VOMITING Oxycodone HCl (Roxicodone -) 5 mg PO Q3H PRN PRN Reason: Mild Pain 1-3 Last Admin: 02/08/19 03:02 Dose: 5 mg Oxycodone HCl (Roxicodone -) 10 mg PO Q3H PRN PRN Reason: Moderate Pain 4-6 Last Admin: 02/08/19 15:31 Dose: 10 mg Oxycodone HCl (Oxycontin -) 10 mg PO BID [facility] Last Admin: 02/09/19 09:30 Dose: 10 mg Paroxetine HCl (Paxil -) 30 mg PO DAILY [facility] Last Admin: 02/09/19 09:36 Dose: 30 mg Polyethylene Glycol (Miralax (For Daily Use) -) 17 gm PO DAILY [facility] Last Admin: 02/09/19 11:11 Dose: 17 grams Tramadol HCl (Ultram -) 50 mg PO Q4H PRN PRN Reason: PAIN LEVEL 1-5 Last Admin: 02/09/19 06:10 Dose: 50 mg Trazodone HCl (Desyrel -) 150 mg PO HS [facility] Last Admin: 02/08/19 21:25 Dose: 150 mg Gen: NAD at rest Heart: RRR Lung: decreased breath sounds at the bases Abd: soft, nontender Ext: no edema Laboratory Results - last 24 hr 02/09/19 02/09/19 05:30 05:30 WBC 8.9 RBC 3.18 L Hgb 9.2 L Hct 27.1 L MCV 85.4 MCH 29.1 MCHC 34.0 RDW 14.2 Plt Count 149 D MPV 8.5 Sodium 141 Potassium 3.9 Chloride 109 H Carbon Dioxide 24 Anion Gap 8 BUN 10.8 Creatinine 0.6 Est GFR (CKD-EPI)AfAm 108.55 Est GFR (CKD-EPI)NonAf 93.66 Random Glucose 64 L Calcium 8.0 L Phosphorus 2.0 L Magnesium 1.8 ASSESSMENT AND PLAN: Lumbar Spinal Stenosis s/p L2-L5/Laminectomies/Facetectomies/Biomechanical Device Insertion/PLIF Acute Hypercapneic Respiratory Failure improved HTN Hyperlipidemia Depression Anemia Thrombocytopenia - pain control - incentive spirometry - monitor CBC - Increase PO when flatus - d/c [place] when OOB - rehab/PT - DVT prophylaxis - disposition per surgery Dr Fuentes
[2019-02-09] MEDS ORDERED: LACTATED RINGERS SOLUTION 1,000 ML/1,000 ML INFUS.BAG IV SCH (17:30)
--- NOTE | 2019-02-09 17:51 | PN ---
Teaching Attending Note Name of Resident: Ynes Quinn ATTENDING PHYSICIAN STATEMENT I saw and evaluated the patient. I reviewed the resident's note and discussed the case with the resident. I agree with the resident's findings and plan as documented with exceptions below. SUBJECTIVE: Patient seen and examined. still with pain, no passed gas yet, urinating well, worked with PT. OBJECTIVE: Vital Signs Period Temp Pulse Resp BP Sys/Husain Pulse Ox Last 24 Hr 98.2 F-98.8 F 86-118 14-28 87-168/56-84 92-99 Intake & Output 02/06/19 02/07/19 02/08/19 02/09/19 23:59 23:59 23:59 23:59 Intake Total 7175 1800 4850 450 Output Total 2600 2200 1295 500 Balance 4575 -400 3555 -50 Weight 139 lb 8.842 oz 140 lb 139 lb 9 oz General: sitting in chair Chest: Decreased effort, decreased breath sounds bilateral bases, R>L Abdomen:Soft, obese, pos bowel sounds Back: dressing clean Extremities: no edema Home Medications Medication Instructions Recorded Amlodipine Besylate 2.5 mg PO DAILY 02/03/19 Atorvastatin Ca [Lipitor] 20 mg PO HS 02/03/19 Lamotrigine 25 mg PO HS 02/03/19 Paroxetine HCl [Paxil] 30 mg PO AM 02/03/19 Trazodone HCl 150 mg PO HS 02/03/19 Active Medications Diphenhydramine HCl (Benadryl Injection -) 25 mg IVPUSH ONCE PRN PRN Reason: FOR ITCHING Lactated Ringer's (Lactated Ringers Solution) 1,000 ml in 1,000 mls @ 75 mls/ hr IV ASDIR [facility] Last Admin: 02/09/19 17:45 Dose: 75 mls/hr Lamotrigine (Lamictal -) 25 mg PO HS [facility] Last Admin: 02/08/19 21:25 Dose: 25 mg Ondansetron HCl (Zofran Injection) 4 mg IVPUSH Q6H PRN PRN Reason: NAUSEA AND/OR VOMITING Oxycodone HCl (Roxicodone -) 5 mg PO Q3H PRN PRN Reason: Mild Pain 1-3 Last Admin: 02/08/19 03:02 Dose: 5 mg Oxycodone HCl (Roxicodone -) 10 mg PO Q3H PRN PRN Reason: Moderate Pain 4-6 Last Admin: 02/08/19 15:31 Dose: 10 mg Oxycodone HCl (Oxycontin -) 10 mg PO BID [facility] Last Admin: 02/09/19 09:30 Dose: 10 mg Paroxetine HCl (Paxil -) 30 mg PO DAILY [facility] Last Admin: 02/09/19 09:36 Dose: 30 mg Polyethylene Glycol (Miralax (For Daily Use) -) 17 gm PO DAILY [facility] Last Admin: 02/09/19 11:11 Dose: 17 grams Tramadol HCl (Ultram -) 50 mg PO Q4H PRN PRN Reason: PAIN LEVEL 1-5 Last Admin: 02/09/19 06:10 Dose: 50 mg Trazodone HCl (Desyrel -) 150 mg PO HS [facility] Last Admin: 02/08/19 21:25 Dose: 150 mg Laboratory Results - last 24 hr 02/09/19 02/09/19 05:30 05:30 WBC 8.9 RBC 3.18 L Hgb 9.2 L Hct 27.1 L MCV 85.4 MCH 29.1 MCHC 34.0 RDW 14.2 Plt Count 149 D MPV 8.5 Sodium 141 Potassium 3.9 Chloride 109 H Carbon Dioxide 24 Anion Gap 8 BUN 10.8 Creatinine 0.6 Est GFR (CKD-EPI)AfAm 108.55 Est GFR (CKD-EPI)NonAf 93.66 Random Glucose 64 L Calcium 8.0 L Phosphorus 2.0 L Magnesium 1.8 ASSESSMENT AND PLAN: Lumbar spinal stenosis with neurogenic claudication Acute hypercapneic respiratory failure Hypoxia, suspect from pain/splinting/poor respiratory effort Transaminitis Normocytic Anemia and TCP HTN HLD Depression PLAN: -s/p removal of L4-L5 hardware; inspection of fusion mass; L2-L5 laminectomies & facetectomies; L2-L3, L3-L4 PLIF; L2-L3, L3-L4 insertion biomechanical devices ; L2-L5 posterior instrumentation; L2-L5 posterolateral arthrodesis; bone allograft; bone autograft; bone marrow aspiration & stem cell concentrate autograft; complex wound closure (20cm) -pain control -monitor h/h and platelets -BP controlled -mood stable, c/w paxil and lamictal -lfts trending down, restart lipitor upon DC -incentive spirometry -advance diet per surgery recs -PT/OT Dispo pending clinical improvement.
--- NOTE | 2019-02-09 19:22 | PN ---
Physical Exam: SUBJECTIVE: Patient seen and examined. She reports burning in her legs and overall discomfort. She denies chest pain, shortness of breath, nausea, or vomiting. She is tolerating liquid diet. OBJECTIVE: Vital Signs Period Temp Pulse Resp BP Sys/Husain Pulse Ox Last 24 Hr 98.2 F-98.8 F 86-114 14-28 87-168/56-84 92-99 GENERAL: The patient is awake, alert, and fully oriented, in no acute distress. HEAD: Normal with no signs of trauma. EYES: PERRL, extraocular movements intact, sclera anicteric, conjunctiva clear. No ptosis. ENT: Ears normal, nares patent, moist mucous membranes. NECK: Trachea midline, full range of motion, supple. LUNGS: Breath sounds equal, clear to auscultation bilaterally, no wheezes, no crackles, no accessory muscle use. HEART: Regular rate and rhythm, S1, S2 without murmur, rub or gallop. ABDOMEN: Soft, nontender, nondistended, normoactive bowel sounds EXTREMITIES: 2+ pulses, warm, well-perfused, no edema. NEUROLOGICAL: Cranial nerves II through XII grossly intact. Normal speech, gait not observed. PSYCH: Normal mood, normal affect. SKIN: Warm, dry, normal turgor, no rashes or lesions noted Laboratory Results - last 24 hr 02/09/19 02/09/19 05:30 05:30 WBC 8.9 RBC 3.18 L Hgb 9.2 L Hct 27.1 L MCV 85.4 MCH 29.1 MCHC 34.0 RDW 14.2 Plt Count 149 D MPV 8.5 Sodium 141 Potassium 3.9 Chloride 109 H Carbon Dioxide 24 Anion Gap 8 BUN 10.8 Creatinine 0.6 Est GFR (CKD-EPI)AfAm 108.55 Est GFR (CKD-EPI)NonAf 93.66 Random Glucose 64 L Calcium 8.0 L Phosphorus 2.0 L Magnesium 1.8 Active Medications Generic Name Dose Route Start Last Admin Trade Name Freq PRN Reason Stop Dose Admin Diphenhydramine HCl 25 mg 02/06/19 09:34 Benadryl Injection - IVPUSH ONCE PRN FOR ITCHING Lactated Ringer's 1,000 ml in 1,000 mls @ 75 mls/hr 02/09/19 17:30 02/09/19 17:45 Lactated Ringers Solution IV 75 mls/hr ASDIR MOISÉS Administration Lamotrigine 25 mg 02/06/19 22:00 02/08/19 21:25 Lamictal - PO 25 mg HS MOISÉS Administration Ondansetron HCl 4 mg 02/06/19 13:28 Zofran Injection IVPUSH Q6H PRN NAUSEA AND/OR VOMITING Oxycodone HCl 5 mg 02/06/19 09:34 02/08/19 03:02 Roxicodone - PO 5 mg Q3H PRN Administration Mild Pain 1-3 Oxycodone HCl 10 mg 02/06/19 09:34 02/08/19 15:31 Roxicodone - PO 10 mg Q3H PRN Administration Moderate Pain 4-6 Oxycodone HCl 10 mg 02/07/19 09:35 02/09/19 09:30 Oxycontin - PO 10 mg BID MOISÉS Administration Paroxetine HCl 30 mg 02/07/19 10:00 02/09/19 09:36 Paxil - PO 30 mg DAILY MOIS[facility]S Administration Polyethylene Glycol 17 gm 02/09/19 10:00 02/09/19 11:11 Miralax (For Daily Use) - PO 17 grams DAILY MO[facility]S Administration Tramadol HCl 50 mg 02/08/19 08:29 02/09/19 06:10 Ultram - PO 50 mg Q4H PRN Administration PAIN LEVEL 1-5 Trazodone HCl 150 mg 02/06/19 22:00 02/08/19 21:25 Desyrel - PO 150 mg HS MO[facility] Administration ASSESSMENT/PLAN: Ms. Alvarado is a 68y/o female with HTN, HLD, and mood disorder who presents for neurosurgery with Dr. Cabello. Pt underwent TIMUR L4-L5, L2-L5 laminectomies, L2-3 & L3-4 PLIF, L2-L5 PISF. Pt became acidotic, hypotensive, and was intubated then later extubated. #acute hypercapneic respiratory failure, resolved Pt is sating well on O2. -wean off O2 -incentive spirometry #hypotension, resolved -NS 75mL/hr -continue to monitor #POD 3 Improvement in pain but now has burning in LE. -monitor in ICU -clear liquids -PT -pain management #normocytic anemia No prior comparison. Hb 9.2. -monitor -consider outpt follow up if not improved #mood disorder -continue home paxil and lamictal #history of hypertension -monitor FEN NS 75mL/hr monitor labs clear diet DVT ppx SCDs Visit type - Emergency Visit Emergency Visit: Yes ED Registration Date: 02/06/19 Care time: The patient presented to the Emergency Department on the above date and was hospitalized for further evaluation of their emergent condition. - New Patient This patient is new to me today: No - Critical Care Critical Care patient: Yes Total Critical Care Time (in minutes): 35 Critical Care Statement: The care of this patient involved high complexity decision making to prevent further life threatening deterioration of the patient 's condition and/or to evaluate & treat vital organ system(s) failure or risk of failure. - Discharge Referral Referred to [facility] Med P.C.: No ATTENDING PHYSICIAN STATEMENT I saw and evaluated the patient. I reviewed the resident's note and discussed the case with the resident. I agree with the resident's findings and plan as documented. SUBJECTIVE: OBJECTIVE: ASSESSMENT AND PLAN:
[2019-02-09] MEDS: traZODone HCL 50 MG TABLET (FP) PO SCH (21:46)
[2019-02-09] MEDS: lamoTRIgine 25 MG TABLET PO SCH (21:47)
[2019-02-10 07:07] LABS: BASO % 0.2 % (0-2.0); EOS % 1.4 % (0-4.5); HEMATOCRIT 24.8 % (32.4-45.2); HEMOGLOBIN 8.4 GM/dL (10.7-15.3); LYMPH % 10.1 % (8-40); MCHC 33.8 g/dl (32.0-36.0); MEAN PLT VOLUME 8.6 fl (7.5-11.1); MONO % 8.6 % (3.8-10.2); NEUT % 79.7 % (42.8-82.8); PLATELET COUNT 158 K/MM3 (134-434); RBC 2.88 M/mm3 (3.60-5.2); WHITE BLOOD COUNT 6.9 K/mm3 (4.0-10.0)
[2019-02-10 07:32] LABS: ALBUMIN 2.1 g/dl (3.4-5.0); BILIRUBIN,TOTAL 0.8 mg/dL (0.2-1); BLOOD UREA NITROGEN 7.5 mg/dL (7-18); CALCIUM 7.7 mg/dL (8.5-10.1); CREATININE 0.5 mg/dL (0.55-1.3); MAGNESIUM 1.8 mg/dL (1.8-2.4); PHOSPHOROUS 2.2 mg/dL (2.5-4.9); POTASSIUM 3.8 mmol/L (3.5-5.1); TOT PROT 4.2 g/dl (6.4-8.2)
[2019-02-10] MEDS ORDERED: NAPH,MB-DB/K PH,MBDB POWDER PACKET PO ONE (07:41)
[2019-02-10] MEDS ORDERED: PARoxetine HCL 10 MG TABLET ONE (10:04)
[2019-02-10] MEDS ORDERED: PT OWN MED DRAWER 7, Y5N ONE (10:05)
[2019-02-10] MEDS: PARoxetine HCL 30 MG TABLET PO SCH (10:13)
[2019-02-10] MEDS: oxyCODONE HCL 10 MG SUSTAINED ACTING TABLET PO SCH ×2 (10:14→22:10)
[2019-02-10] MEDS: traMADol HCL 50 MG TABLET PO PRN ×2 (10:16→18:47)
[2019-02-10] MEDS: POLYETHYLENE GLYCOL 3350 119 GM BTL PO SCH (10:45)
--- NOTE | 2019-02-10 11:02 | PN ---
Teaching Attending Note Name of Resident: Moni Bustamante ATTENDING PHYSICIAN STATEMENT I saw and evaluated the patient. I reviewed the resident's note and discussed the case with the resident. I agree with the resident's findings and plan as documented. SUBJECTIVE: Patient seen and examined in the ICU. Still with pain but seems slightly better controlled today. No CP or SOB. Afebrile. Intake & Output 02/07/19 02/08/19 02/09/19 02/10/19 23:59 23:59 23:59 23:59 Intake Total 1800 4850 2375 400 Output Total 2200 1295 1300 600 Balance -400 3555 1075 -200 Weight 139 lb 8.842 oz 140 lb 139 lb 9 oz 139 lb 14.4 oz Last Vital Signs Temp Pulse Resp BP Pulse Ox 98.0 F 102 H 20 155/71 96 02/10/19 10:00 02/10/19 10:00 02/10/19 10:00 02/10/19 10:00 02/10/19 09:00 Active Medications Diphenhydramine HCl (Benadryl Injection -) 25 mg IVPUSH ONCE PRN PRN Reason: FOR ITCHING Lactated Ringer's (Lactated Ringers Solution) 1,000 ml in 1,000 mls @ 75 mls/ hr IV ASDIR [facility] Last Admin: 02/09/19 17:45 Dose: 75 mls/hr Lamotrigine (Lamictal -) 25 mg PO HS [facility] Last Admin: 02/09/19 21:47 Dose: 25 mg Ondansetron HCl (Zofran Injection) 4 mg IVPUSH Q6H PRN PRN Reason: NAUSEA AND/OR VOMITING Oxycodone HCl (Roxicodone -) 5 mg PO Q3H PRN PRN Reason: Mild Pain 1-3 Last Admin: 02/08/19 03:02 Dose: 5 mg Oxycodone HCl (Roxicodone -) 10 mg PO Q3H PRN PRN Reason: Moderate Pain 4-6 Last Admin: 02/08/19 15:31 Dose: 10 mg Oxycodone HCl (Oxycontin -) 10 mg PO BID [facility] Last Admin: 02/10/19 10:14 Dose: 10 mg Paroxetine HCl (Paxil -) 30 mg PO DAILY [facility] Last Admin: 02/10/19 10:13 Dose: 30 mg Polyethylene Glycol (Miralax (For Daily Use) -) 17 gm PO DAILY [facility] Last Admin: 02/09/19 11:11 Dose: 17 grams Tramadol HCl (Ultram -) 50 mg PO Q4H PRN PRN Reason: PAIN LEVEL 1-5 Last Admin: 02/10/19 10:16 Dose: 50 mg Trazodone HCl (Desyrel -) 150 mg PO HS [facility] Last Admin: 02/09/19 21:46 Dose: 150 mg Gen: NAD at rest Heart: RRR Lung: decreased breath sounds at the bases Abd: soft, nontender Ext: no edema Laboratory Results - last 24 hr 02/06/19 02/10/19 02/10/19 06:29 06:20 06:20 WBC 6.9 RBC 2.88 L Hgb 8.4 L Hct 24.8 L MCV 86.0 MCH 29.0 MCHC 33.8 RDW 14.0 Plt Count 158 MPV 8.6 Absolute Neuts (auto) 5.5 Neutrophils % 79.7 Lymphocytes % 10.1 D Monocytes % 8.6 Eosinophils % 1.4 Basophils % 0.2 Nucleated RBC % 0 Sodium 140 Potassium 3.8 Chloride 108 H Carbon Dioxide 26 Anion Gap 6 L BUN 7.5 Creatinine 0.5 L Est GFR (CKD-EPI)AfAm 115.26 Est GFR (CKD-EPI)NonAf 99.45 Random Glucose 84 Calcium 7.7 L Phosphorus 2.2 L Magnesium 1.8 Total Bilirubin 0.8 AST 47 H ALT 67 H Alkaline Phosphatase 146 H Total Protein 4.2 L Albumin 2.1 L Blood Type O POSITIVE Antibody Screen Negative Crossmatch See Detail ASSESSMENT AND PLAN: Lumbar Spinal Stenosis s/p L2-L5/Laminectomies/Facetectomies/Biomechanical Device Insertion/PLIF Acute Hypercapneic Respiratory Failure improved HTN Hyperlipidemia Depression Anemia Thrombocytopenia - pain control - incentive spirometry - monitor CBC - PO as tolerated - DVT prophylaxis - Disposition per surgery Dr Fuentes
[2019-02-10] MEDS ORDERED: ATORVASTATIN CA 20 MG TABLET (FP) PO ONE (12:19)
[2019-02-10] MEDS: oxyCODONE HCL 5 MG TABLET PO PRN (12:28)
[2019-02-10] MEDS ORDERED: DOCUSATE SODIUM 100 MG CAPSULE (FP) PO PRN (14:05)
--- NOTE | 2019-02-10 15:03 | PN ---
Physical Exam: SUBJECTIVE: Patient seen and examined at bedside. pt states she is improving and pain is better controlled although she still has pain. pt is walking with PT but feels unsteady on her own OBJECTIVE: Vital Signs Period Temp Pulse Resp BP Sys/Husain Pulse Ox Last 24 Hr 98.0 F-100.4 F 80-116 15-24 106-155/54-81 94-98 GENERAL: The patient is awake, alert, and fully oriented, in no acute distress. LUNGS: Breath sounds equal, clear to auscultation bilaterally, no wheezes, no crackles, no accessory muscle use. HEART: Regular rate and rhythm, S1, S2 ABDOMEN: Soft, nontender, nondistended, normoactive bowel sounds, no guarding EXTREMITIES: 2+ pulses, warm, well-perfused, no edema. NEUROLOGICAL: Cranial nerves II through XII grossly intact. Normal speech, gait not observed. SKIN: Warm, dry, normal turgor, no rashes or lesions noted Laboratory Results - last 24 hr 02/06/19 02/10/19 02/10/19 06:29 06:20 06:20 WBC 6.9 RBC 2.88 L Hgb 8.4 L Hct 24.8 L MCV 86.0 MCH 29.0 MCHC 33.8 RDW 14.0 Plt Count 158 MPV 8.6 Absolute Neuts (auto) 5.5 Neutrophils % 79.7 Lymphocytes % 10.1 D Monocytes % 8.6 Eosinophils % 1.4 Basophils % 0.2 Nucleated RBC % 0 Sodium 140 Potassium 3.8 Chloride 108 H Carbon Dioxide 26 Anion Gap 6 L BUN 7.5 Creatinine 0.5 L Est GFR (CKD-EPI)AfAm 115.26 Est GFR (CKD-EPI)NonAf 99.45 Random Glucose 84 Calcium 7.7 L Phosphorus 2.2 L Magnesium 1.8 Total Bilirubin 0.8 AST 47 H ALT 67 H Alkaline Phosphatase 146 H Total Protein 4.2 L Albumin 2.1 L Blood Type O POSITIVE Antibody Screen Negative Crossmatch See Detail Current Medications Atorvastatin Calcium (Lipitor -) 20 mg PO HS [facility] Bisacodyl (Dulcolax -) 5 mg PO DAILY PRN PRN Reason: CONSTIPATION Diphenhydramine HCl (Benadryl Injection -) 25 mg IVPUSH ONCE PRN PRN Reason: FOR ITCHING Docusate Sodium (Colace -) 100 mg PO Q12H PRN PRN Reason: CONSTIPATION Lamotrigine (Lamictal -) 25 mg PO HS [facility] Last Admin: 02/09/19 21:47 Dose: 25 mg Ondansetron HCl (Zofran Injection) 4 mg IVPUSH Q6H PRN PRN Reason: NAUSEA AND/OR VOMITING Oxycodone HCl (Roxicodone -) 5 mg PO Q3H PRN PRN Reason: Mild Pain 1-3 Last Admin: 02/10/19 12:28 Dose: 5 mg Oxycodone HCl (Roxicodone -) 10 mg PO Q3H PRN PRN Reason: Moderate Pain 4-6 Last Admin: 02/08/19 15:31 Dose: 10 mg Oxycodone HCl (Oxycontin -) 10 mg PO BID [facility] Last Admin: 02/10/19 10:14 Dose: 10 mg Paroxetine HCl (Paxil -) 30 mg PO DAILY [facility] Last Admin: 02/10/19 10:13 Dose: 30 mg Polyethylene Glycol (Miralax (For Daily Use) -) 17 gm PO DAILY [facility] Last Admin: 02/10/19 10:45 Dose: 17 grams Senna (Senna -) 1 tab PO BID [facility] Tramadol HCl (Ultram -) 50 mg PO Q4H PRN PRN Reason: PAIN LEVEL 1-5 Last Admin: 02/10/19 10:16 Dose: 50 mg Trazodone HCl (Desyrel -) 150 mg PO HS [facility] Last Admin: 02/09/19 21:46 Dose: 150 mg ASSESSMENT/PLAN: This is a 68 y/o PMH HLD, HTN, and depression s/p TIMUR L4-L5, L2-L5 laminectomies, L2-3 & L3-L4 PLIF, L2-L5 PISF. after procedure, pt had to be reintubated and required pressors. Neuro: -AAOx3 -neuro intact, CN 2-12 intact Pulm: Acute hypercapneic resp failure s/p re-intubation & extubation -pt required reintubation on 02/06 following initial extubation. -initial ABG prior to re-intubation: pH 7.03, pCO2 >100, pO2 223. -ABG following re-intubation: pH 7.46, pCO2 31.7, pO2 147 -extubated 02/07, saturating well on NC -c/w Incentive spirometry Cardio: - currently vitals are stable Ortho : TIMUR L4-L5, L2-L5 laminectomies, L2-3 & L3-L4 PLIF, L2-L5 PISF -pain control with oxycodone prn, tramadol for pain per ortho - zofran prn for nausea -Post-op Ancef 1g x 3 doses. -PT/OT/Rehab, OOB. -weight bearing as tolerated B/L LE's. GI -start miralax 15 -pt is passing gas but has not had BM Neuro: depression/lethargy - improved, pt is awake alert and oriented - c/w lamictal, trazodone, paroxetine Cardiovascular: HTN/HLD - c/w atorvastatin DVT PPx:CHRISTOPHER's, SCD's. Dispo: transfer to medicine Visit type - Emergency Visit Emergency Visit: No - New Patient This patient is new to me today: No - Critical Care Critical Care patient: Yes Total Critical Care Time (in minutes): 38 Critical Care Statement: The care of this patient involved high complexity decision making to prevent further life threatening deterioration of the patient 's condition and/or to evaluate & treat vital organ system(s) failure or risk of failure. ATTENDING PHYSICIAN STATEMENT I saw and evaluated the patient. I reviewed the resident's note and discussed the case with the resident. I agree with the resident's findings and plan as documented. SUBJECTIVE: OBJECTIVE: ASSESSMENT AND PLAN:
--- NOTE | 2019-02-10 16:04 | PN ---
Physical Exam: SUBJECTIVE: Patient seen and examined. She reports continued burning sensation 8 /10 max down both legs. She denies fever, chills, abdominal pain, chest pain, shortness of breath, nausea, and vomiting. She is tolerating diet well. Is able to move from bed to chair with assistance. OBJECTIVE: Vital Signs Period Temp Pulse Resp BP Sys/Husain Pulse Ox Last 24 Hr 98.0 F-100.4 F 80-116 15-24 106-155/54-81 94-98 GENERAL: The patient is awake, alert, and fully oriented, in no acute distress. HEAD: Normal with no signs of trauma. EYES: PERRL, extraocular movements intact ENT: Ears normal, nares patent, moist mucous membranes. NECK: Trachea midline, full range of motion LUNGS: Breath sounds equal, clear to auscultation bilaterally HEART: Regular rate and rhythm, no murmur ABDOMEN: Soft, nontender, nondistended, normoactive bowel sounds EXTREMITIES: 2+ pulses, warm, well-perfused, no edema. NEUROLOGICAL: Normal speech. PSYCH: Normal mood, normal affect. SKIN: Warm, dry, normal turgor, no rashes or lesions noted Laboratory Results - last 24 hr 02/06/19 02/10/19 02/10/19 06:29 06:20 06:20 WBC 6.9 RBC 2.88 L Hgb 8.4 L Hct 24.8 L MCV 86.0 MCH 29.0 MCHC 33.8 RDW 14.0 Plt Count 158 MPV 8.6 Absolute Neuts (auto) 5.5 Neutrophils % 79.7 Lymphocytes % 10.1 D Monocytes % 8.6 Eosinophils % 1.4 Basophils % 0.2 Nucleated RBC % 0 Sodium 140 Potassium 3.8 Chloride 108 H Carbon Dioxide 26 Anion Gap 6 L BUN 7.5 Creatinine 0.5 L Est GFR (CKD-EPI)AfAm 115.26 Est GFR (CKD-EPI)NonAf 99.45 Random Glucose 84 Calcium 7.7 L Phosphorus 2.2 L Magnesium 1.8 Total Bilirubin 0.8 AST 47 H ALT 67 H Alkaline Phosphatase 146 H Total Protein 4.2 L Albumin 2.1 L Blood Type O POSITIVE Antibody Screen Negative Crossmatch See Detail Active Medications Generic Name Dose Route Start Last Admin Trade Name Freq PRN Reason Stop Dose Admin Atorvastatin Calcium 20 mg 02/10/19 12:28 Lipitor - PO HS MOISÉS Bisacodyl 5 mg 02/10/19 14:01 Dulcolax - PO DAILY PRN CONSTIPATION Diphenhydramine HCl 25 mg 02/06/19 09:34 Benadryl Injection - IVPUSH ONCE PRN FOR ITCHING Docusate Sodium 100 mg 02/10/19 14:05 Colace - PO Q12H PRN CONSTIPATION Lamotrigine 25 mg 02/06/19 22:00 02/09/19 21:47 Lamictal - PO 25 mg HS MOISÉS Administration Ondansetron HCl 4 mg 02/06/19 13:28 Zofran Injection IVPUSH Q6H PRN NAUSEA AND/OR VOMITING Oxycodone HCl 5 mg 02/06/19 09:34 02/10/19 12:28 Roxicodone - PO 5 mg Q3H PRN Administration Mild Pain 1-3 Oxycodone HCl 10 mg 02/06/19 09:34 02/08/19 15:31 Roxicodone - PO 10 mg Q3H PRN Administration Moderate Pain 4-6 Oxycodone HCl 10 mg 02/07/19 09:35 02/10/19 10:14 Oxycontin - PO 10 mg BID MOISÉS Administration Paroxetine HCl 30 mg 02/07/19 10:00 02/10/19 10:13 Paxil - PO 30 mg DAILY [facility] Administration Polyethylene Glycol 17 gm 02/09/19 10:00 02/10/19 10:45 Miralax (For Daily Use) - PO 17 grams DAILY [facility] Administration Senna 1 tab 02/10/19 22:00 Senna - PO BID MOIS[facility]S Tramadol HCl 50 mg 02/08/19 08:29 02/10/19 10:16 Ultram - PO 50 mg Q4H PRN Administration PAIN LEVEL 1-5 Trazodone HCl 150 mg 02/06/19 22:00 02/09/19 21:46 Desyrel - PO 150 mg HS [facility] Administration ASSESSMENT/PLAN: Ms. Alvarado is a 68y/o female with HTN, HLD, and mood disorder who presents for neurosurgery with Dr. Cabello. Pt underwent TIMUR L4-L5, L2-L5 laminectomies, L2-3 & L3-4 PLIF, L2-L5 PISF. Pt became acidotic, hypotensive, and was intubated then later extubated. #acute hypercapneic respiratory failure, resolved Using O2 intermittently -wean off O2 -incentive spirometry #hypotension, resolved -NS 75mL/hr -continue to monitor #POD 4 Continued burning in legs. -clear liquids -PT -pain management -follow up next week with Dr. Cabello #normocytic anemia Hb 8.4. Decreased from yesterday -monitor -consider outpt follow up if not improved #mood disorder -continue home paxil and lamictal #history of hypertension -monitor #constipation Passing gas -bowel regimine FEN NS 75mL/hr monitor labs clear diet DVT ppx SCDs Visit type - Emergency Visit Emergency Visit: Yes ED Registration Date: 02/06/19 Care time: The patient presented to the Emergency Department on the above date and was hospitalized for further evaluation of their emergent condition. - New Patient This patient is new to me today: No - Critical Care Critical Care patient: No - Discharge Referral Referred to [facility] Med P.C.: No ATTENDING PHYSICIAN STATEMENT I saw and evaluated the patient. I reviewed the resident's note and discussed the case with the resident. I agree with the resident's findings and plan as documented. SUBJECTIVE: OBJECTIVE: ASSESSMENT AND PLAN:
[2019-02-10] MEDS ORDERED: oxyCODONE HCL 5 MG TABLET PO PRN (16:08)
[2019-02-10] MEDS ORDERED: BISACODYL 10 MG SUPP.RECT PR ONE (16:09)
--- NOTE | 2019-02-10 16:12 | PN ---
Teaching Attending Note Name of Resident: Ynes Quinn ATTENDING PHYSICIAN STATEMENT I saw and evaluated the patient. I reviewed the resident's note and discussed the case with the resident. I agree with the resident's findings and plan as documented with exceptions below. SUBJECTIVE: Patient seen and examined, still with pain but controlled with medications. No BM yet. Breathing improved, passing gas, tolerating diet well. OBJECTIVE: Vital Signs Period Temp Pulse Resp BP Sys/Husain Pulse Ox Last 24 Hr 98.0 F-100.4 F 80-116 15-24 106-155/54-81 94-98 Intake & Output 02/07/19 02/08/19 02/09/19 02/10/19 23:59 23:59 23:59 23:59 Intake Total 1800 4850 2375 800 Output Total 2200 1295 1300 1600 Balance -400 3555 1075 -800 Weight 139 lb 8.842 oz 140 lb 139 lb 9 oz 139 lb 14.4 oz general: sitting in chair in no acute distress neck; Soft, supple Chest: decreased effort, decreased breath sounds at bases, pos air entry, no rales or wheezing Abdomen;Soft, distended, pos bowel sounds, NT Extremities: no edema musculoskeletal: spinal dressing clean Home Medications Medication Instructions Recorded Amlodipine Besylate 2.5 mg PO DAILY 02/03/19 Atorvastatin Ca [Lipitor] 20 mg PO HS 02/03/19 Lamotrigine 25 mg PO HS 02/03/19 Paroxetine HCl [Paxil] 30 mg PO AM 02/03/19 Trazodone HCl 150 mg PO HS 02/03/19 Active Medications Atorvastatin Calcium (Lipitor -) 20 mg PO HS [facility] Bisacodyl (Dulcolax -) 5 mg PO DAILY PRN PRN Reason: CONSTIPATION Bisacodyl (Dulcolax Suppository -) 10 mg FL ONCE ONE Stop: 02/10/19 16:10 Diphenhydramine HCl (Benadryl Injection -) 25 mg IVPUSH ONCE PRN PRN Reason: FOR ITCHING Docusate Sodium (Colace -) 100 mg PO BID [facility] Lamotrigine (Lamictal -) 25 mg PO HS [facility] Last Admin: 02/09/19 21:47 Dose: 25 mg Ondansetron HCl (Zofran Injection) 4 mg IVPUSH Q6H PRN PRN Reason: NAUSEA AND/OR VOMITING Oxycodone HCl (Oxycontin -) 10 mg PO BID [facility] Last Admin: 02/10/19 10:14 Dose: 10 mg Oxycodone HCl (Roxicodone -) 5 mg PO Q3H PRN PRN Reason: PAIN LEVEL 7 - 10 Paroxetine HCl (Paxil -) 30 mg PO DAILY [facility] Last Admin: 02/10/19 10:13 Dose: 30 mg Polyethylene Glycol (Miralax (For Daily Use) -) 17 gm PO DAILY [facility] Last Admin: 02/10/19 10:45 Dose: 17 grams Senna (Senna -) 2 tab PO HS [facility] Tramadol HCl (Ultram -) 50 mg PO Q4H PRN PRN Reason: PAIN LEVEL 1-5 Last Admin: 02/10/19 10:16 Dose: 50 mg Trazodone HCl (Desyrel -) 150 mg PO HS [facility] Last Admin: 02/09/19 21:46 Dose: 150 mg Laboratory Results - last 24 hr 02/06/19 02/10/19 02/10/19 06:29 06:20 06:20 WBC 6.9 RBC 2.88 L Hgb 8.4 L Hct 24.8 L MCV 86.0 MCH 29.0 MCHC 33.8 RDW 14.0 Plt Count 158 MPV 8.6 Absolute Neuts (auto) 5.5 Neutrophils % 79.7 Lymphocytes % 10.1 D Monocytes % 8.6 Eosinophils % 1.4 Basophils % 0.2 Nucleated RBC % 0 Sodium 140 Potassium 3.8 Chloride 108 H Carbon Dioxide 26 Anion Gap 6 L BUN 7.5 Creatinine 0.5 L Est GFR (CKD-EPI)AfAm 115.26 Est GFR (CKD-EPI)NonAf 99.45 Random Glucose 84 Calcium 7.7 L Phosphorus 2.2 L Magnesium 1.8 Total Bilirubin 0.8 AST 47 H ALT 67 H Alkaline Phosphatase 146 H Total Protein 4.2 L Albumin 2.1 L Blood Type O POSITIVE Antibody Screen Negative Crossmatch See Detail ASSESSMENT AND PLAN: -Lumbar spinal stenosis with neurogenic claudication, s/p removal of L4-L5 hardware; inspection of fusion mass; L2-L5 laminectomies & facetectomies; L2-L3 , L3-L4 PLIF; L2-L3, L3-L4 insertion biomechanical devices; L2-L5 posterior instrumentation; L2-L5 posterolateral arthrodesis; bone allograft; bone autograft; bone marrow aspiration & stem cell concentrate autograft; complex wound closure (20cm) -Acute hypercapneic respiratory failure -Hypoxia, suspect from pain/splinting/poor respiratory effort -Transaminitis -Normocytic Anemia and TCP -HTN -HLD -Depression -Constipation PLAN: -pain control -tolerating diet, start aggressive bowel regimen. -monitor h/h and platelets -BP controlled -mood stable, c/w paxil and lamictal -lfts trending down, restart lipitor upon DC -incentive spirometry -advance diet per surgery recs -PT/OT Dispo pending clinical improvement. Agree with transfer out of ICU.
[2019-02-10] MEDS ORDERED: traMADol HCL 50 MG TABLET PO PRN (18:49)
[2019-02-10] MEDS ORDERED: ONDANSETRON 4 MG/2 ML VIAL IVPUSH PRN (18:49)
[2019-02-10] MEDS ORDERED: SENNOSIDES 8.6MG TABLET (FP) PO SCH (22:00)
[2019-02-10] MEDS: lamoTRIgine 25 MG TABLET PO SCH (22:09)
[2019-02-10] MEDS: DOCUSATE SODIUM 100 MG CAPSULE (FP) PO SCH (22:09)
[2019-02-10] MEDS: SENNOSIDES 8.6MG TABLET (FP) PO SCH (22:09)
[2019-02-10] MEDS: ATORVASTATIN CA 20 MG TABLET (FP) PO SCH (22:09)
[2019-02-10] MEDS: traZODone HCL 50 MG TABLET (FP) PO SCH (22:10)
[2019-02-11] MEDS ORDERED: INSULIN (LEVEMIR) 100 UNITS/ML UNITS SQ ONE (06:57)
[2019-02-11 09:09] LABS: HEMATOCRIT 23.2 % (32.4-45.2); HEMOGLOBIN 7.9 GM/dL (10.7-15.3); MCH 29.1 pg (25.7-33.7); MCHC 34.2 g/dl (32.0-36.0); MEAN CELL VOLUME 85.1 fl (80-96); PLATELET COUNT 203 K/MM3 (134-434); RBC 2.72 M/mm3 (3.60-5.2); WHITE BLOOD COUNT 5.5 K/mm3 (4.0-10.0)
[2019-02-11] MEDS ORDERED: PARoxetine HCL 10 MG TABLET ONE (09:21)
[2019-02-11] MEDS: DOCUSATE SODIUM 100 MG CAPSULE (FP) PO SCH ×2 (09:23→21:26)
[2019-02-11] MEDS: PARoxetine HCL 30 MG TABLET PO SCH (09:23)
[2019-02-11] MEDS: POLYETHYLENE GLYCOL 3350 119 GM BTL PO SCH (09:24)
[2019-02-11] MEDS: oxyCODONE HCL 10 MG SUSTAINED ACTING TABLET PO SCH ×2 (09:24→21:27)
[2019-02-11] MEDS: BISACODYL 5 MG TABLET.DR (FP) PO PRN (09:32)
[2019-02-11 09:38] LABS: BLOOD UREA NITROGEN 7.4 mg/dL (7-18); CREATININE 0.6 mg/dL (0.55-1.3); MAGNESIUM 1.8 mg/dL (1.8-2.4); PHOSPHOROUS 2.4 mg/dL (2.5-4.9); POTASSIUM 3.8 mmol/L (3.5-5.1)
[2019-02-11] MEDS ORDERED: BISACODYL 10 MG SUPP.RECT RC ONE (14:15)
[2019-02-11] MEDS ORDERED: NAPH,MB-DB/K PH,MBDB POWDER PACKET PO ONE (14:15)
--- NOTE | 2019-02-11 14:57 | PN ---
Teaching Attending Note Name of Resident: Ynes Quinn ATTENDING PHYSICIAN STATEMENT I saw and evaluated the patient. I reviewed the resident's note and discussed the case with the resident. I agree with the resident's findings and plan as documented with exceptions below. SUBJECTIVE: patient seen and examined. pain well controlled, had a BM, ambulating better, no new complaints. OBJECTIVE: Vital Signs Period Temp Pulse Resp BP Sys/Husain Pulse Ox Last 24 Hr 98.9 F-99.7 F 90-106 17-20 123-152/53-94 94-95 Intake & Output 02/08/19 02/09/19 02/10/19 02/11/19 23:59 23:59 23:59 23:59 Intake Total 4850 2375 900 150 Output Total 1295 1300 1600 Balance 3555 1075 -700 150 Weight 140 lb 139 lb 9 oz 139 lb 14.4 oz 142 lb 4.8 oz general: sitting in chair in no acute distress neck; Soft, supple Chest: decreased effort, improved effort, pos air entry, no rales or wheezing Abdomen;Soft, distended, pos bowel sounds, NT Extremities: no edema musculoskeletal: spinal dressing clean Home Medications Medication Instructions Recorded Amlodipine Besylate 2.5 mg PO DAILY 02/03/19 Atorvastatin Ca [Lipitor] 20 mg PO HS 02/03/19 Lamotrigine 25 mg PO HS 02/03/19 Paroxetine HCl [Paxil] 30 mg PO AM 02/03/19 Trazodone HCl 150 mg PO HS 02/03/19 Active Medications Atorvastatin Calcium (Lipitor -) 20 mg PO [facility] Last Admin: 02/10/19 22:09 Dose: 20 mg Bisacodyl (Dulcolax -) 5 mg PO DAILY PRN PRN Reason: CONSTIPATION Last Admin: 02/11/19 09:32 Dose: 5 mg Diphenhydramine HCl (Benadryl Injection -) 25 mg IVPUSH ONCE PRN PRN Reason: FOR ITCHING Docusate Sodium (Colace -) 100 mg PO BID [facility] Last Admin: 02/11/19 09:23 Dose: 100 mg Lamotrigine (Lamictal -) 25 mg PO [facility] Last Admin: 02/10/19 22:09 Dose: 25 mg Ondansetron HCl (Zofran Injection) 4 mg IVPUSH Q6H PRN PRN Reason: NAUSEA AND/OR VOMITING Oxycodone HCl (Roxicodone -) 5 mg PO Q3H PRN PRN Reason: PAIN LEVEL 7 - 10 Last Admin: 02/11/19 05:58 Dose: 5 mg Oxycodone HCl (Oxycontin -) 10 mg PO BID [facility] Last Admin: 02/11/19 09:24 Dose: 10 mg Paroxetine HCl (Paxil -) 30 mg PO DAILY [facility] Last Admin: 02/11/19 09:23 Dose: 30 mg Polyethylene Glycol (Miralax (For Daily Use) -) 17 gm PO DAILY [facility] Last Admin: 02/11/19 09:24 Dose: 17 gm Senna (Senna -) 2 tab PO HS [facility] Last Admin: 02/10/19 22:09 Dose: 2 tab Tramadol HCl (Ultram -) 50 mg PO Q4H PRN PRN Reason: PAIN LEVEL 1-5 Last Admin: 02/11/19 13:00 Dose: 50 mg Trazodone HCl (Desyrel -) 150 mg PO HS [facility] Last Admin: 02/10/19 22:10 Dose: 150 mg ASSESSMENT AND PLAN: -Lumbar spinal stenosis with neurogenic claudication, s/p removal of L4-L5 hardware; inspection of fusion mass; L2-L5 laminectomies & facetectomies; L2-L3 , L3-L4 PLIF; L2-L3, L3-L4 insertion biomechanical devices; L2-L5 posterior instrumentation; L2-L5 posterolateral arthrodesis; bone allograft; bone autograft; bone marrow aspiration & stem cell concentrate autograft; complex wound closure (20cm) -Acute hypercapneic respiratory failure -Hypoxia, suspect from pain/splinting/poor respiratory effort -Transaminitis -Normocytic Anemia and TCP -HTN -HLD -Depression -Constipation PLAN: Oxygenating well, pain better, s/p BM tolerating diet well oxycontin BID Tramadol prn. D/c Oxycodone IR. BP controlled mood stable, c/w paxil and lamictal lfts trending down, restart lipitor upon DC incentive spirometry Ongoing PT. Dispo to SNF pending disposition arrangements.
--- NOTE | 2019-02-11 16:40 | PN ---
Physical Exam: SUBJECTIVE: Patient seen and examined. She reports continued burning in lower extremities, worse on left. She also has some back pain upon standing but is able to move around and walks with assistance. She denies fever, chills, chest pain, shortness of breath, abdominal pain, nausea, or vomiting. She has been tolerating diet well. OBJECTIVE: Vital Signs Period Temp Pulse Resp BP Sys/Husain Pulse Ox Last 24 Hr 98.9 F-99.7 F 88-106 17-20 128-152/53-94 94-95 GENERAL: The patient is awake, alert, and fully oriented, in no acute distress. Sitting in chair. HEAD: Normal with no signs of trauma. EYES: PERRL, extraocular movements intact ENT: Ears normal, nares patent, moist mucous membranes. NECK: Trachea midline, full range of motion LUNGS: Breath sounds equal, clear to auscultation bilaterally, no accessory muscle use. HEART: Regular rate and rhythm, no murmur ABDOMEN: Soft, nontender, nondistended, normoactive bowel sounds BACK: bandage covering lower thoracic and the lumbar area, no soaking or erythema surrounding EXTREMITIES: 2+ pulses, warm, well-perfused, no edema. NEUROLOGICAL: Normal speech PSYCH: Normal mood, normal affect. SKIN: Warm, dry, normal turgor Laboratory Results - last 24 hr 02/06/19 02/11/19 02/11/19 21:50 08:35 08:35 WBC 5.5 RBC 2.72 L Hgb 7.9 L Hct 23.2 L MCV 85.1 MCH 29.1 MCHC 34.2 RDW 14.0 Plt Count 203 D MPV 8.0 Puncture Site Right brachial ABG pH 7.03 L* ABG pCO2 at Pt Temp > 100 H* ABG pO2 at Pt Temp 223 H ABG O2 Sat (Measured) 98.7 H ABG O2 Content 13.3 Garth Test Negative Oxygen Flow Rate Yes Sodium 141 Potassium 3.8 Chloride 107 Carbon Dioxide 30 Anion Gap 4 L BUN 7.4 Creatinine 0.6 Est GFR (CKD-EPI)AfAm 108.55 Est GFR (CKD-EPI)NonAf 93.66 Random Glucose 99 Calcium 8.0 L Phosphorus 2.4 L Magnesium 1.8 Active Medications Generic Name Dose Route Start Last Admin Trade Name Freq PRN Reason Stop Dose Admin Atorvastatin Calcium 20 mg 02/10/19 12:28 02/10/19 22:09 Lipitor - PO 20 mg HS MOIS[facility]S Administration Bisacodyl 5 mg 02/10/19 14:01 02/11/19 09:32 Dulcolax - PO 5 mg DAILY PRN Administration CONSTIPATION Diphenhydramine HCl 25 mg 02/10/19 18:49 Benadryl Injection - IVPUSH ONCE PRN FOR ITCHING Docusate Sodium 100 mg 02/10/19 22:00 02/11/19 09:23 Colace - PO 100 mg BID MOIS[facility]S Administration Lamotrigine 25 mg 02/10/19 22:00 02/10/19 22:09 Lamictal - PO 25 mg HS MO[facility] Administration Ondansetron HCl 4 mg 02/10/19 18:49 Zofran Injection IVPUSH Q6H PRN NAUSEA AND/OR VOMITING Oxycodone HCl 10 mg 02/10/19 22:00 02/11/19 09:24 Oxycontin - PO 10 mg BID [facility] Administration Paroxetine HCl 30 mg 02/11/19 10:00 02/11/19 09:23 Paxil - PO 30 mg DAILY [facility] Administration Polyethylene Glycol 17 gm 02/11/19 10:00 02/11/19 09:24 Miralax (For Daily Use) - PO 17 gm DAILY MO[facility] Administration Senna 2 tab 02/10/19 22:00 02/10/19 22:09 Senna - PO 2 tab HS [facility] Administration Tramadol HCl 50 mg 02/11/19 14:58 Ultram - PO Q4H PRN PAIN LEVEL 6-10 Trazodone HCl 150 mg 02/10/19 22:00 02/10/19 22:10 Desyrel - PO 150 mg HS MO[facility] Administration ASSESSMENT/PLAN: Ms. Alvarado is a 68y/o female with HTN, HLD, and mood disorder who presents for neurosurgery with Dr. Cabello. Pt underwent TIMUR L4-L5, L2-L5 laminectomies, L2-3 & L3-4 PLIF, L2-L5 PISF. Pt became acidotic, hypotensive, and was intubated then later extubated. #acute hypercapneic respiratory failure, resolved Using O2 intermittently -wean off O2 -incentive spirometry #hypotension, resolved -NS 75mL/hr -continue to monitor #POD 5 Continued burning in legs. -advanced to regular diet -PT -pain management -follow up next week with Dr. Cabello #normocytic anemia Hb 7.9. Decreased from yesterday. -monitor closely -consider outpt follow up if not improved #mood disorder -continue home paxil and lamictal #history of hypertension -monitor #constipation had BM today -continue meds as needed for constipation FEN NS 75mL/hr monitor labs regular diet DVT ppx SCDs Visit type - Emergency Visit Emergency Visit: Yes ED Registration Date: 02/06/19 Care time: The patient presented to the Emergency Department on the above date and was hospitalized for further evaluation of their emergent condition. - New Patient This patient is new to me today: No - Critical Care Critical Care patient: No - Discharge Referral Referred to [facility] Med [facility].C[facility] No ATTENDING PHYSICIAN STATEMENT I saw and evaluated the patient. I reviewed the resident's note and discussed the case with the resident. I agree with the resident's findings and plan as documented. SUBJECTIVE: OBJECTIVE: ASSESSMENT AND PLAN:
[2019-02-11] MEDS: traMADol HCL 50 MG TABLET PO PRN (17:21)
[2019-02-11] MEDS: traZODone HCL 50 MG TABLET (FP) PO SCH (21:26)
[2019-02-11] MEDS: lamoTRIgine 25 MG TABLET PO SCH (21:28)
[2019-02-11] MEDS: SENNOSIDES 8.6MG TABLET (FP) PO SCH (21:28)
[2019-02-11] MEDS: ATORVASTATIN CA 20 MG TABLET (FP) PO SCH (21:29)
[2019-02-12] MEDS: traMADol HCL 50 MG TABLET PO PRN ×2 (08:07→15:32)
[2019-02-12 08:09] LABS: BASO % 0.5 % (0-2.0); EOS % 2.6 % (0-4.5); HEMATOCRIT 23.5 % (32.4-45.2); LYMPH % 18.8 % (8-40); MCH 28.8 pg (25.7-33.7); MCHC 33.9 g/dl (32.0-36.0); MEAN CELL VOLUME 84.8 fl (80-96); MEAN PLT VOLUME 8.6 fl (7.5-11.1); MONO % 11.1 % (3.8-10.2); PLATELET COUNT 215 K/MM3 (134-434); RBC 2.77 M/mm3 (3.60-5.2); RDW 14.2 % (11.6-15.6); WHITE BLOOD COUNT 5.1 K/mm3 (4.0-10.0)
[2019-02-12 09:22] LABS: PLATELET ESTIMATE ADEQUATE
--- NOTE | 2019-02-12 10:42 | PN ---
Progress Note (short form) - Note Progress Note: POD#5 C/O R leg pain Minimal LBP Clinically markedly improved Walked in the hallway standing upright not kyphotic any longer. CVS Stable RESP AE equal bilat No adventitious sounds ABD Soft Did pass stool. Wound Dry New dressings applied NEURO Fully intact both motor and sensory assessment. ASSESS Making good progress following extensive surgery LSpine PLAN Pain MX to continue Add Neurontin PT Mobilize FWBAT D/C to rehab See in office 3 weeks
[2019-02-12] MEDS ORDERED: PARoxetine HCL 10 MG TABLET ONE (10:49)
[2019-02-12] MEDS ORDERED: PT OWN MED DRAWER 7, Y5N ONE (10:50)
[2019-02-12] MEDS: oxyCODONE HCL 10 MG SUSTAINED ACTING TABLET PO SCH ×2 (10:52→22:39)
[2019-02-12] MEDS: BISACODYL 5 MG TABLET.DR (FP) PO PRN (10:52)
[2019-02-12] MEDS: GABAPENTIN 100 MG CAPSULE (FP) PO SCH ×2 (10:52→22:39)
[2019-02-12] MEDS: PARoxetine HCL 30 MG TABLET PO SCH (10:53)
[2019-02-12] MEDS: DOCUSATE SODIUM 100 MG CAPSULE (FP) PO SCH ×2 (10:53→22:39)
[2019-02-12] MEDS: POLYETHYLENE GLYCOL 3350 119 GM BTL PO SCH (10:53)
[2019-02-12] MEDS ORDERED: Methylnaltrexone Bromide 12 MG/0.6 ML KIT SQ ONE (11:00)
--- NOTE | 2019-02-12 14:44 | PN ---
Physical Exam: SUBJECTIVE: Patient seen and examined, feeling better, some Lower extremity burning, no complaints. OBJECTIVE: Vital Signs Period Temp Pulse Resp BP Sys/Husain Pulse Ox Last 24 Hr 98.2 F-99.0 F 86-93 20-20 128-151/60-74 98 Intake & Output 02/09/19 02/10/19 02/11/19 02/12/19 23:59 23:59 23:59 23:59 Intake Total 2375 900 450 Output Total 1300 1600 Balance 1075 -700 450 Weight 139 lb 9 oz 139 lb 14.4 oz 142 lb 4.8 oz 140 lb 14.4 oz General: sitting in chair in no acute distress Neck; Soft, supple CVS:S1S2 regular Chest: decreased effort, improved effort, pos air entry, no rales or wheezing Abdomen;Soft, distended, pos bowel sounds, NT Extremities: no edema Musculoskeletal: spinal dressing clean Laboratory Results - last 24 hr 02/12/19 02/12/19 06:20 06:20 WBC 5.1 RBC 2.77 L Hgb 8.0 L Hct 23.5 L MCV 84.8 MCH 28.8 MCHC 33.9 RDW 14.2 Plt Count 215 MPV 8.6 Absolute Neuts (auto) 3.4 Neutrophils % 67.0 Lymphocytes % 18.8 D Monocytes % 11.1 H Eosinophils % 2.6 D Basophils % 0.5 Nucleated RBC % 0 Platelet Estimate Adequate Platelet Comment No clumping noted Phosphorus 3.5 Active Medications Generic Name Dose Route Start Last Admin Trade Name Freq PRN Reason Stop Dose Admin Amlodipine Besylate 2.5 mg 02/12/19 14:45 Norvasc - PO DAILY MOIS[facility] Atorvastatin Calcium 20 mg 02/10/19 12:28 02/11/19 21:29 Lipitor - PO 20 mg HS [facility] Administration Bisacodyl 5 mg 02/10/19 14:01 02/12/19 10:52 Dulcolax - PO 5 mg DAILY PRN Administration CONSTIPATION Diphenhydramine HCl 25 mg 02/10/19 18:49 Benadryl Injection - IVPUSH ONCE PRN FOR ITCHING Docusate Sodium 100 mg 02/10/19 22:00 02/12/19 10:53 Colace - PO 100 mg BID [facility] Administration Gabapentin 200 mg 02/12/19 10:30 02/12/19 10:52 Neurontin - PO 200 mg BID [facility] Administration Lamotrigine 25 mg 02/10/19 22:00 02/11/19 21:28 Lamictal - PO 25 mg HS [facility] Administration Ondansetron HCl 4 mg 02/10/19 18:49 Zofran Injection IVPUSH Q6H PRN NAUSEA AND/OR VOMITING Oxycodone HCl 10 mg 02/10/19 22:00 02/12/19 10:52 Oxycontin - PO 10 mg BID [facility] Administration Paroxetine HCl 30 mg 02/11/19 10:00 02/12/19 10:53 Paxil - PO 30 mg DAILY [facility] Administration Polyethylene Glycol 17 gm 02/11/19 10:00 02/12/19 10:53 Miralax (For Daily Use) - PO 17 gm DAILY [facility] Administration Senna 2 tab 02/10/19 22:00 02/11/19 21:28 Senna - PO 2 tab HS [facility] Administration Tramadol HCl 50 mg 02/11/19 14:58 02/12/19 08:07 Ultram - PO 50 mg Q4H PRN Administration PAIN LEVEL 6-10 Trazodone HCl 150 mg 02/10/19 22:00 02/11/19 21:26 Desyrel - PO 150 mg HS [facility] Administration ASSESSMENT/PLAN: -Lumbar spinal stenosis with neurogenic claudication, s/p removal of L4-L5 hardware; inspection of fusion mass; L2-L5 laminectomies & facetectomies; L2-L3 , L3-L4 PLIF; L2-L3, L3-L4 insertion biomechanical devices; L2-L5 posterior instrumentation; L2-L5 posterolateral arthrodesis; bone allograft; bone autograft; bone marrow aspiration & stem cell concentrate autograft; complex wound closure (20cm) -Acute hypercapneic respiratory failure -Hypoxia, suspect from pain/splinting/poor respiratory effort -Transaminitis -Normocytic Anemia and TCP -HTN -HLD -Depression -Constipation PLAN: Oxygenating well, pain better, s/p BM tolerating diet well oxycontin BID Tramadol prn. D/c Oxycodone IR. BP controlled mood stable, c/w paxil and lamictal lfts trending down, restart lipitor upon DC incentive spirometry Ongoing PT. Dispo to SNF pending disposition arrangements. Visit type - Emergency Visit Emergency Visit: Yes ED Registration Date: 02/06/19 Care time: The patient presented to the Emergency Department on the above date and was hospitalized for further evaluation of their emergent condition. - New Patient This patient is new to me today: No - Critical Care Critical Care patient: No - Discharge Referral Referred to [facility] No
[2019-02-12] MEDS: amLODIPine BESYLATE 2.5 MG TABLET (FP) PO SCH (15:25)
[2019-02-12] MEDS: ATORVASTATIN CA 20 MG TABLET (FP) PO SCH (22:39)
[2019-02-12] MEDS: traZODone HCL 50 MG TABLET (FP) PO SCH (22:39)
[2019-02-12] MEDS: lamoTRIgine 25 MG TABLET PO SCH (22:39)
[2019-02-12] MEDS: SENNOSIDES 8.6MG TABLET (FP) PO SCH (22:40)
[2019-02-13] MEDS ORDERED: PARoxetine HCL 10 MG TABLET ONE ×2 (08:57→08:58)
[2019-02-13] MEDS: oxyCODONE HCL 10 MG SUSTAINED ACTING TABLET PO SCH (09:03)
[2019-02-13] MEDS: GABAPENTIN 100 MG CAPSULE (FP) PO SCH (09:05)
[2019-02-13] MEDS: DOCUSATE SODIUM 100 MG CAPSULE (FP) PO SCH (09:05)
[2019-02-13] MEDS: BISACODYL 5 MG TABLET.DR (FP) PO PRN (09:05)
[2019-02-13] MEDS: POLYETHYLENE GLYCOL 3350 119 GM BTL PO SCH (09:06)
[2019-02-13] MEDS: amLODIPine BESYLATE 2.5 MG TABLET (FP) PO SCH (09:06)
[2019-02-13] MEDS: PARoxetine HCL 30 MG TABLET PO SCH (09:06)
[2019-02-13] MEDS: traMADol HCL 50 MG TABLET PO PRN ×2 (11:35→15:15)
[2019-02-13] MEDS ORDERED: BISACODYL 10 MG SUPP.RECT RC ONE (11:50)
--- NOTE | 2019-02-13 13:12 | PN ---
Teaching Attending Note Name of Resident: Ynes Quinn ATTENDING PHYSICIAN STATEMENT I saw and evaluated the patient. I reviewed the resident's note and discussed the case with the resident. I agree with the resident's findings and plan as documented with exceptions below. SUBJECTIVE: Patient seen and examined. overall feeling better, still with leg burning. Motivated to go to rehab. OBJECTIVE: Vital Signs Period Temp Pulse Resp BP Sys/Husain Pulse Ox Last 24 Hr 97.6 F-99.2 F 75-86 18-20 119-145/54-92 Intake & Output 02/10/19 02/11/19 02/12/19 02/13/19 23:59 23:59 23:59 23:59 Intake Total 900 450 200 Output Total 1600 Balance -700 450 200 Weight 139 lb 14.4 oz 142 lb 4.8 oz 140 lb 14.4 oz 137 lb 9.6 oz General: sitting in chair, no acute distress CVS:S1S2 regular Neck: Soft, supple Chest: CTAB, no rales or wheezing Abdomen:soft, NT, obese but no new distension, pos bowel sounds Extremities: no edema Home Medications Medication Instructions Recorded Amlodipine Besylate 2.5 mg PO DAILY 02/03/19 Atorvastatin Ca [Lipitor] 20 mg PO HS 02/03/19 Lamotrigine 25 mg PO HS 02/03/19 Paroxetine HCl [Paxil] 30 mg PO AM 02/03/19 Trazodone HCl 150 mg PO HS 02/03/19 Active Medications Amlodipine Besylate (Norvasc -) 2.5 mg PO DAILY [facility] Last Admin: 02/13/19 09:06 Dose: 2.5 mg Atorvastatin Calcium (Lipitor -) 20 mg PO HS [facility] Last Admin: 02/12/19 22:39 Dose: 20 mg Bisacodyl (Dulcolax -) 5 mg PO DAILY PRN PRN Reason: CONSTIPATION Last Admin: 02/13/19 09:05 Dose: 5 mg Diphenhydramine HCl (Benadryl Injection -) 25 mg IVPUSH ONCE PRN PRN Reason: FOR ITCHING Docusate Sodium (Colace -) 100 mg PO BID [facility] Last Admin: 02/13/19 09:05 Dose: 100 mg Gabapentin (Neurontin -) 200 mg PO BID [facility] Last Admin: 02/13/19 09:05 Dose: 200 mg Lamotrigine (Lamictal -) 25 mg PO HS [facility] Last Admin: 02/12/19 22:39 Dose: 25 mg Ondansetron HCl (Zofran Injection) 4 mg IVPUSH Q6H PRN PRN Reason: NAUSEA AND/OR VOMITING Oxycodone HCl (Oxycontin -) 10 mg PO BID [facility] Last Admin: 02/13/19 09:03 Dose: 10 mg Paroxetine HCl (Paxil -) 30 mg PO DAILY [facility] Last Admin: 02/13/19 09:06 Dose: 30 mg Polyethylene Glycol (Miralax (For Daily Use) -) 17 gm PO DAILY [facility] Last Admin: 02/13/19 09:06 Dose: 17 gm Senna (Senna -) 2 tab PO [facility] Last Admin: 02/12/19 22:40 Dose: 2 tab Tramadol HCl (Ultram -) 50 mg PO Q4H PRN PRN Reason: PAIN LEVEL 6-10 Last Admin: 02/13/19 11:35 Dose: 50 mg Trazodone HCl (Desyrel -) 150 mg PO [facility] Last Admin: 02/12/19 22:39 Dose: 150 mg ASSESSMENT AND PLAN: -Lumbar spinal stenosis with neurogenic claudication, s/p removal of L4-L5 hardware; inspection of fusion mass; L2-L5 laminectomies & facetectomies; L2-L3 , L3-L4 PLIF; L2-L3, L3-L4 insertion biomechanical devices; L2-L5 posterior instrumentation; L2-L5 posterolateral arthrodesis; bone allograft; bone autograft; bone marrow aspiration & stem cell concentrate autograft; complex wound closure (20cm) -Acute hypercapneic respiratory failure -Hypoxia, suspect from pain/splinting/poor respiratory effort -Transaminitis -Normocytic Anemia and TCP -HTN -HLD -Depression -Constipation PLAN: Oxygenating well, pain better, s/p BM Tolerating diet well Oxycontin BID Tramadol prn. BP controlled Mood stable, c/w paxil and lamictal LFTs trending down, restart lipitor upon DC Incentive spirometry Ongoing PT. Dispo to SNF when arrangements made. Discussed with patient.
[2019-02-13 15:58] VITALS: BP 116/67; PULSE 76; TEMP 98.8
--- NOTE | 2019-02-13 17:12 | DS ---
Physical Exam: SUBJECTIVE: Patient seen and examined. She reports burning in legs bilaterally. Back pain is present but manageable on meds. She denies fever, chills, n/v. She had a couple small BMs yesterday. She was given dulcolax prior to d/c. OBJECTIVE: Vital Signs Period Temp Pulse Resp BP Sys/Husain Pulse Ox Last 24 Hr 97.6 F-99.2 F 75-83 18-20 116-145/54-92 PHYSICAL EXAM GENERAL: The patient is awake, alert, and fully oriented, in no acute distress. Sitting in chair. HEAD: Normal with no signs of trauma. EYES: PERRL, extraocular movements intact ENT: Ears normal, nares patent, moist mucous membranes. NECK: Trachea midline, full range of motion LUNGS: Breath sounds equal, clear to auscultation bilaterally, no accessory muscle use. HEART: Regular rate and rhythm, no murmur ABDOMEN: Soft, nontender, nondistended, normoactive bowel sounds BACK: bandage covering lower thoracic and the lumbar area, no soaking or erythema surrounding EXTREMITIES: 2+ pulses, warm, well-perfused, no edema. NEUROLOGICAL: Normal speech PSYCH: Normal mood, normal affect. SKIN: Warm, dry, normal turgor LABS CBC, BMP 02/12/19 06:20 02/11/19 08:35 HOSPITAL COURSE: Ms. Alvarado is a 68y/o female with HTN, HLD, and mood disorder presents for neurosurgery. Pt underwent TIMUR L4-L5, L2-L5 laminectomies, L2-3 & L3-4 PLIF, L2- L5 PISF. Post op pt became acidotic, hypotensive, and was re-intubated. She was extubated and sedation stopped the next day. Pain was controlled with analgesics. The patient began having bilateral leg burning for which gabapentin was initiated. Pt also had a normocytic anemia that was stable during admission. She had difficulty ambulating and was discharged to SNF. Date of Admission:02/06/19 Date of Discharge: 02/13/19 Minutes to complete discharge: 35 Discharge Summary Problems reviewed: Yes Reason For Visit: SPINAL STENOSIS Current Active Problems Constipation due to opioid therapy (Acute) Normocytic anemia (Acute) Depression (Chronic) Hyperlipidemia (Chronic) Hypertension (Chronic) Lumbar radiculopathy (Chronic) Condition: Stable - Instructions Diet, Activity, Other Instructions: Hospital visit: You were in the hospital after you had back surgery. After you woke up from surgery, you had trouble breathing and your blood pressure was low, so a breathing tube had to be put back in for a day and medication was given to keep your blood pressure stable. Your breathing and blood pressure improved and the tube was taken out. Your medication was adjusted to help your pain and burning. You are having some weakness and would benefit from intense physical therapy, so you are being sent to a alf facility. Your hemoglobin (red blood cell level) is low. You may have long-standing anemia because your levels did not change much in the hospital. Some of your electrolytes were low, and you were given supplements. The levels are normal now. Finally, your liver enzymes were high, but they are almost at normal levels now. You will need to follow up with your primary care doctor to have your blood checked. Please continue to work with physical therapy and mobilize yourself, maintaining full weight baring as tolerated. Medications: Continue your home medications. Take Tylenol (acetaminophen) according to the label if needed for pain. Currently on oxycontin and as needed tramadol for pain, taper to off as symptoms improve. Call Dr. Cabello's office if you need other pain medication. Gabapentin 200mg twice a day Please continue to take Colace, Senna, and Miralax to have a daily bowel movement. Follow up with: Dr. Cabello in 3 weeks. Call his office to schedule an appointment. Your primary care doctor after discharge from the alf facility. Blood work--CBC, BMP and LFTs in 1 week Other instructions: Do not lift any objects heavier than a book, bend over, or twist your back. Dr. Cabello will give you further instructions at your follow up visit. no driving, operating heavy machinery or taking important decisions alone till off narcotics and cleared by your doctor. Also you are on more than one medication including trazodone, oxycontin, tramadol that can cause dizziness and drowsiness. Please taper pain medications as symptoms improve and do not take if dizzy or drowsy. Return to the emergency room if you have bleeding from the surgical site that soaks a bandage, fever above 101, unable to urinate, chest pain, shortness of breath, new calf pain, or inability to walk. Referrals: Frank Cabello MD [Staff Physician] - Disposition: [facility] - Home Medications Comprehensive Discharge Medication List: Ambulatory Orders Amlodipine Besylate 2.5 mg PO DAILY 02/03/19 Atorvastatin Ca [Lipitor] 20 mg PO HS 02/03/19 Lamotrigine 25 mg PO HS 02/03/19 Paroxetine HCl [Paxil] 30 mg PO AM 02/03/19 Trazodone HCl 150 mg PO HS 02/03/19 Docusate Sodium [Colace -] 100 mg PO BID #60 capsule 02/13/19 Gabapentin [Neurontin -] 200 mg PO BID 30 Days #60 capsule 02/13/19 Polyethylene Glycol 3350 [Miralax 119 gm Btl -] 17 gm PO DAILY #1 bottle Sennosides [Senna -] 2 tab PO HS #60 tablet 02/13/19 oxyCODONE SR [Oxycontin] 10 mg PO BID tab.er.12h MDD 20mg 02/13/19 traMADol HCL [Ultram -] 50 mg PO Q4H PRN tablet MDD 300mg 02/13/19 This patient is new to me today: No Emergency Visit: Yes ED Registration Date: 02/06/19 Care time: The patient presented to the Emergency Department on the above date and was hospitalized for further evaluation of their emergent condition. Critical Care patient: No - Discharge Referral Referred to [facility] Med [facility].C.: No ATTENDING PHYSICIAN STATEMENT I saw and evaluated the patient. I reviewed the resident's note and discussed the case with the resident. I agree with the resident's findings and plan as documented. SUBJECTIVE: OBJECTIVE: ASSESSMENT AND PLAN:
== END 2019-02-13 17:30 | DRG 453 ==
LOC: JSAMEDAYSX 06:08 → JICU 14:51 → J8W 02-10 20:33
PROVIDERS: ADMIT Orthopaedic Surgery Orthopaedic Surgery of the Spine; ATTEND Hospitalist
PROC: 0SG1071 Fusion of 2 or more Lumbar Vertebral Joints with Autologous Tissue Substitute, Posterior Approach, Posterior Column, Open Approach (ICD-10-PCS; 2019-02-06)
PROC: 07DR3ZX Extraction of Iliac Bone Marrow, Percutaneous Approach, Diagnostic (ICD-10-PCS; 2019-02-06)
PROC: 0CHY8BZ Insertion of Airway into Mouth and Throat, Via Natural or Artificial Opening Endoscopic (ICD-10-PCS; 2019-02-06)
PROC: 5A1945Z Respiratory Ventilation, 24-96 Consecutive Hours (ICD-10-PCS; 2019-02-06)
PROC: 30233N1 Transfusion of Nonautologous Red Blood Cells into Peripheral Vein, Percutaneous Approach (ICD-10-PCS; 2019-02-06)
PROC: 0SG10A0 Fusion of 2 or more Lumbar Vertebral Joints with Interbody Fusion Device, Anterior Approach, Anterior Column, Open Approach (ICD-10-PCS; principal; 2019-02-06 08:00)
DX: M46.86 Other specified inflammatory spondylopathies, lumbar region (principal); J96.01 Acute respiratory failure with hypoxia; J96.02 Acute respiratory failure with hypercapnia; E87.2 Acidosis; I10 Essential (primary) hypertension; D64.9 Anemia, unspecified; D69.6 Thrombocytopenia, unspecified; E78.5 Hyperlipidemia, unspecified; F32.9 Major depressive disorder, single episode, unspecified; M48.062 Spinal stenosis, lumbar region with neurogenic claudication; K59.03 Drug induced constipation; R74.0 Nonspecific elevation of levels of transaminase and lactic acid dehydrogenase [LDH]; E83.39 Other disorders of phosphorus metabolism; E83.42 Hypomagnesemia
CPT/HCPCS: 31500; 36415; 36430; 36511; 36600; 71045-TC-FY; 76000-TC-FY; 80048; 80053; 82803; 83735; 84100; 85025; 85027; 86850; 86891; 86900; 86901; 86922; 88300-TC; 88304-TC; 94002; 94760; 97116-GP; 97162-GP; J0131; J1644; P9038; P9058